=== PATIENT | male | born 1940 | race Caucasian/White ===

== ENCOUNTER 2021-03-15 11:22 | Outpatient (CLI) | payer MEDICARE, SELFPAY ==
--- NOTE | 2021-03-15 11:30 | ECG_ITS ---
Measurements Intervals [place] Rate: 67 P: 29 UT: 184 QRS: -20 QRSD: 106 T: 23 QT: 378 QTc: 401 Interpretive Statements SINUS RHYTHM LEFT VENTRICULAR HYPERTROPHY BORDERLINE R WAVE PROGRESSION, ANTERIOR LEADS BORDERLINE T WAVE ABNORMALITY- INFERIOR LEADS BASELINE ARTIFACT- I, II, AVR, AVL BORDERLINE ECG Electronically Signed On 03-15-2021 15:23:55 HEAT TREATING OPERATOR by Jewel Marie D.O.
== END 2021-03-15 11:23 | disposition home or self-care (01) ==
PROVIDERS: PCP Internal Medicine; Visit Provider Urology
DX: Z01.810 Encounter for preprocedural cardiovascular examination (principal); E78.00 Pure hypercholesterolemia, unspecified; I51.7 Cardiomegaly
CPT/HCPCS: 93005

== ENCOUNTER 2021-03-21 00:25 | Day surgery (SDC) | payer MEDICARE, SELFPAY ==
--- NOTE | 2021-03-11 08:25 | P.HP_ITS ---
H&P: HPI History of Present Illness Date/Time: 03/11/21 08:25 This is a pleasant 81-year-old male who has been a patient in our practice since December 2005. He has long-standing prostatism that responded well to finasteride for years. Recently he has had progression and urinary frequency and urgency that have persisted despite the addition of tamsulosin. Urodynamics revealed high pressure voiding with a slow flow in an absence of unstable contractions. After discussion of options for this obstructive voiding pattern he has elected for a TURP. He is aware the alternative procedures including UroLift and other minimally invasive procedures. He is aware the risk including, but not limited to, adverse cardiopulmonary events, postoperative bleeding, persistent irritable voiding symptoms, urinary continence. Chief Complaint: Urinary frequency/urgency and diminished stream Review of Systems Cardiovascular: Cardiovascular: Denies chest pain, Denies lightheadedness, Denies palpitations and Denies dyspnea Respiratory: Respiratory: Denies dyspnea Gastrointestinal: Gastrointestinal: Denies diarrhea, Denies nausea and Denies vomiting Genitourinary: Genitourinary: Denies hematuria and Denies dysuria Endocrine: Endocrine: Denies palpitations Exam Const: General: no acute distress Resp: Effort & Inspection: normal respiratory effort GI: Inspection: non-distended GI Palp: No abdominal tenderness and No Guarding due to palpation present (GI) Auscultation: normal bowel sounds Assessment and Plan Assessment and plan (1) BPH loc w urin obs/LUTS: Code(s): N40.1 - Benign prostatic hyperplasia with lower urinary tract symptoms Status: Acute Assessment and Plan: * TURP
[2021-03-13 13:17] VITALS: BMI 28.1
--- NOTE | 2021-03-13 13:27 | PC.NURSE ---
Report to the Outpatient Waiting Room, entrance under the green pavilion located off [facility], at time _0600_ on date _03/21/21_. OR Time: __0730___. - You and your visitor will be asked a series of questions to screen for COVID 19 for your protection. - A mask is required within the hospital. - Only one visitor is allowed at this time. Patient visitors will be guided where to wait when not with patient. Preoperative COVID Testing Requirements: No COVID Test needed if: (proof is required; if not received patient will have Rapid Test prior to entry) - Patient has received COVID Vaccine at least 14 days prior to procedure date or - Patient has positive COVID test result within last 90 days of surgery date. COVID Test needed if above criteria is not met If not COVID vaccinated a COVID test must be conducted within 72 hours of surgery and patient is asked to isolate self from time of testing until procedure. You will go to the [facility] for your COVID testing. The [facility] is located at the corner of [address] [facility]. You will only be called if COVID results are positive and your surgeon may reschedule your elective surgery date. Patients may have clear liquids (water, carbonated beverages, clear teas, apple juice) until 3 hours prior to surgery (0430) with a maximum of 20 ounces. - No food from midnight until time of surgery - Infants may have breast milk until 4 hours before surgery, infant formula 6 hours prior to surgery. - Children will be allowed to drink immediately following surgery. If applicable, please bring a bottle or sippy cup to assist with drinking. Juice, water, soda, and popsicles are readily available. For infants on formula, please bring formula the day of surgery. Pacifiers are allowed. Take the following medications with a SIP of water the morning of surgery: ___NONE Medications to discontinue per physician __ASPIRIN, ALL VITAMINS [address] MURILLO, _PRESERVISION AREDS-2 3 DAYS PER ANESTHESIA Date to take last dose__03/13/21, & 03/17/21 Please no make-up, nail cameroonian, hairspray, perfume, deodorant, or body powder the day of surgery. No jewelry (including any body piercings) or valuables the day of surgery, leave them at home. Please take a shower or bath the night before, or the morning of, surgery with an antibacterial soap. Wear comfortable, loose fitting clothing. Children are encouraged to wear pajamas. - Jewelry must be removed prior to entering the operating room. Rings and piercings that are not removed may be cut off. - The hospital will not accept responsibility for valuables. - Please leave all valuables, including medications, at home the day of surgery. If you are going home after surgery, a licensed flatbed driver must drive you home. - NO public transportation without another adult. - We recommend that an adult stay with you for 24 hours following discharge. - We also recommend that you do not drive, make important decision, drink alcoholic beverages, or take any drugs that were not prescribed by your health care provider for at least 24 hours after your discharge time. For Pediatric surgeries, we recommend two adults accompany the child home (only one inside the building at this time). Follow any additional instructions given to you from your surgeon. Telephone instructions given to __PT____and asked if any additional questions and then verbalized understanding. Patient advised to call surgeon office or pre surgery nurse liaison [phone] if any additional questions.
[2021-03-21] VITALS (13 sets, daily range): BP systolic 135–152; BP diastolic 55–74; PULSE 60–74; RESP 10–18; TEMP 35.8–36.4; O2SAT 94–100
[2021-03-21] MEDS: LACTATED RINGERS 1,000 ML 30 ML IV CONT ×2 (06:10→08:24)
[2021-03-21 06:17] LABS: Glucose Point of Care 130 mg/dl (65-105)
--- NOTE | 2021-03-21 06:50 | WPDHPUPDATE1 ---
History and Physical Update Update Date/Time: 03/21/21 06:50 History and Physical has been reviewed, including an updated exam of the patient. There are NO changes in the patient's condition. Risks, benefits, and alternatives have been discussed and questions answered. Patient agrees to proceed with procedure.
--- NOTE | 2021-03-21 06:59 | P.PNAN_ITS ---
Anes - Initial Pre Proc Eval Procedure: Operation Date: 03/21/21 07:30 Proposed Procedures p Trans Urethral Resection Prostate - Glenn Ya MD Date/Time: 03/21/21 06:59 Surgeon: Glenn Ya MD Pre Op Diagnosis: BPH Patient Data Age: 81 Gender: M Height: 1.68 m Weight: 79.09 kg Allergies Allergy/AdvReac Type Severity Reaction Status Date / Time latex AdvReac Blister Verified 03/13/21 13:12 Home Medications Medication Instructions Recorded Confirmed Type aspirin 81 mg PO DAILY 03/13/21 03/13/21 History cholecalciferol (vitamin D3) 25 mcg PO DAILY 03/13/21 03/13/21 History cinnamon bark [Cinnamon] 1,000 mg PO BID 03/13/21 03/13/21 History finasteride 5 mg HS 03/13/21 03/13/21 History multivitamin [Multi-Vitamin] 1 tablet PO DAILY 03/13/21 03/13/21 History nintedanib [Ofev] 100 mg PO BID 03/13/21 03/13/21 History omega 2-mej-fka-fish oil [Fish Oil] 1 cap PO TID 03/13/21 03/13/21 History simvastatin 20 mg HS 03/13/21 03/13/21 History vit C,F-Sz-ahbkq-lutein-zeaxan 1 tablet PO BID 03/13/21 03/13/21 History [PreserVision AREDS-2] Laboratory Tests 03/21/21 06:13 POC Capillary Glucose 130 mg/dl H mg/dl (65-105) Patient hx anesthesia problems: none Family hx anesthesia problems: none Results Review: All pre-operative results and documents have been reviewed as part of the pre-operative evaluation. [facility] Past Medical History Medical History (Updated 03/21/21 @ 07:00 by Gamal Yanez MD) BPH (benign prostatic hyperplasia) Hyperlipidemia Pulmonary fibrosis Surgical History Surgical History (Updated 03/21/21 @ 07:01 by Gamal Yanez MD) History of lung biopsy Hx of tonsillectomy Social History Social History Smoking status: Never smoker Second hand tobacco smoke exposure: No Alcohol intake: never Substance use: never Substance use type: does not use Living arrangements: with friend(s) Additional living arrangements comments: PT LIVES WITH SIGNIFICANT OTHER Spiritual care concerns: No Anes - Eval Final PreProcedure Day of Procedure 03/21/21 06:59 Patient weight: overweight Heart: regular rate and rhythm Lungs: clear to auscultation Airway: Mallampati scale class II Neurological: alert and oriented Last oral intake: >/= 8 hours ASA classification: III Emergent: no Anesthetic plan: proceed Anesthesia type and monitoring: general LMA and standard monitoring Results Review: All pre-operative results and documents have been reviewed as part of the pre-operative evaluation. Informed Consent: The patient's anesthetic plan and its attendant risks and benefits were discussed with the patient/family/POA. Questions were solicited and answers provided to the satisfaction of the patient/family/POA.
[2021-03-21] MEDS: ceFAZolin 2 GM/D5W 50 ML 2 GM/50 ML BAG IVPB (07:23)
--- NOTE | 2021-03-21 08:25 | W.PM.PROC2 ---
Procedure Note - Detailed Date of Procedure 03/21/21 Pre-op Diagnosis BPH Post-op Diagnosis same Procedure Performed TURP Surgeon Glenn Ya MD Anesthesia general Description of Procedure The patient was brought to the operative suite where he is prepped and draped in routine sterile fashion while in the dorsal lithotomy position after the uneventful induction of a [general LMA/spinal] anesthetic. A 27 Divehi resectoscope sheath was placed into his bladder. He had no urethral strictures. The patient had trilobar hyperplasia with a small median lobe. The bladder itself was endoscopically normal, showing no mucosal hyperemia, intravesical neoplasm or foreign bodies. There was a single, orthotopic ureteral orifice bilaterally. These orifices were identified and preserved throughout the remainder of the procedure. Attention was first turned to resection of the median lobe. This resection was undertaken from the bladder neck to the verumontanum and carried out until the transverse fibers of the bladder neck were identified. The left lateral lobe was then resected starting at the 6 o'clock position, working counter clockwise to the 12 o'clock position. Again, resection was carried out from the bladder neck to the verumontanum until the capsular fibers of the prostate were identified. The right lateral lobe was resected in a similar fashion starting at the 6 o'clock position working clockwise to the 12 o'clock position and carried out until the capsular fibers of the prostate were identified. Apical tissue was then circumferentially resected. All chips were evacuated from the bladder using an [employer] evacuator. Hemostasis was obtained with electric cautery. The ureteral orifices were again inspected and found to be without injury. Estimated blood loss throughout this procedure was []cc. The patient was taken to recovery room having tolerated this well. Estimated Blood Loss 50 Drains Yes Packing No Pathology yes Complications No immediate complications Condition stable Disposition PACU
[2021-03-21] MEDS: fentaNYL CITRATE INJ (*CRX) 100 MCG/2 ML VIAL 25 MCG IV PUSH ×3 (08:48→09:00)
--- NOTE | 2021-03-21 09:36 | SUR.PHASEI ---
[id number] sbar faxed floor notified
--- NOTE | 2021-03-21 10:15 | ADMGEN ---
This patient, Jaya Galvan, was admitted to 2 Medical Room 240-. Patient/family oriented to hospital policies and general routines including ID bracelet, bed and alarms, visiting hours, pain management, procedures, bathroom and other care routines, personal items, smoking policy, room service/diet, and visiting hours. Information on how to activate the Rapid Response Team has been discussed. Patient/Family are encouraged to report perceived risks to care and to ask questions if they do not understand what they are told or what they should do.
[2021-03-21] MEDS: DEXTROSE 5%/LACTATED RINGERS 1,000 ML 125 ML IV CONT (10:30)
[2021-03-21] MEDS: MULTIVITAMINS THERAPEUTIC TAB (*BKC) 1 TABLET PO (11:05)
[2021-03-21] MEDS: DOCUSATE SODIUM 100 MG CAPSULE PO (11:05)
[2021-03-21] MEDS: SIMVASTATIN 20 MG TABLET BY MOUTH (21:26)
[2021-03-21] MEDS: HYDROcodone/acetaminophen (*CRX) 5-325 MG TABLET 1 TAB PO (21:26)
[2021-03-22 03:00] VITALS: BP 135/64; PULSE 60; RESP 18; TEMP 36.6; O2SAT 95
[2021-03-22 05:12] LABS: Hematocrit 35.1 % (42.0-52.0); Hemoglobin 11.9 g/dL (14.0-18.0)
[2021-03-22 05:35] LABS: Anion Gap 6 mmol/L (8-16); Blood Urea Nitrogen 10 mg/dL (9-20); Calcium 9.3 mg/dL (8.4-10.2); Carbon Dioxide 29 mmol/L (22-30); Chloride 104 mmol/L (98-107); Estimated CRCL calculation 63 ml/min; Estimated Glomerular Filt Rate > 60; Glucose 112 mg/dL (65-110); Sodium 139 mmol/L (137-145)
[2021-03-22 08:00] VITALS: BP 128/68; PULSE 68; RESP 16; TEMP 36.1; O2SAT 98
[2021-03-22] MEDS: CEPHALEXIN 500 MG CAPSULE PO ×3 (08:35→16:37)
[2021-03-22] MEDS: MULTIVITAMINS THERAPEUTIC TAB (*BKC) 1 TABLET PO (08:35)
--- NOTE | 2021-03-22 09:01 | WPDANESPN ---
Anes - Prog Note Post-Op Date/Time: 03/22/21 09:01 Cardiovascular status: normal Respiratory status: normal Airway patency: baseline Mental status: baseline Post-Op hydration status: normal Vital Signs: Last Vital Signs Temp 36.6 C 03/22/21 03:00 Pulse 60 03/22/21 03:00 Resp 18 03/22/21 03:00 BP 135/64 03/22/21 03:00 Pulse Ox 95 03/22/21 03:00 Pain Score (VAS): 0 I/O: Intake & Output 03/21/21 03/22/21 03/22/21 23:59 07:59 15:59 Intake Total 3400 900 360 Output Total 3750 650 Balance -350 250 360 Laboratory Tests 03/22/21 04:36 03/22/21 04:36 03/22/21 03/22/21 04:36 04:36 Hgb 11.9 L Hct 35.1 L Sodium 139 Potassium 4.0 Chloride 104 Carbon Dioxide 29 Anion Gap 6 L BUN 10 Creatinine 0.70 Estim Creat Clear Calc 63 Estimated GFR > 60 Glucose 112 H Calcium 9.3 Post-procedural complaints: none Patient Feedback: Patient satisfied with anesthetic care.
--- NOTE | 2021-03-22 09:31 | WPDUROPN2 ---
Progress Note: A&P Assessment and Plan (1) BPH loc w urin obs/LUTS: Code(s): N40.1 - Benign prostatic hyperplasia with lower urinary tract symptoms Status: Acute Assessment and Plan: Doing well POD#1 TURP - voiding trial this morning. Subjective Subjective Date/Time Seen: 03/22/21 09:31 POD #1: TURP - comfortable, no compliants Review of Systems Cardiovascular: Cardiovascular: Denies chest pain, Denies lightheadedness, Denies palpitations and Denies dyspnea Respiratory: Respiratory: Denies dyspnea Gastrointestinal: Gastrointestinal: Denies diarrhea, Denies nausea and Denies vomiting Genitourinary: Genitourinary: Denies hematuria and Denies dysuria Endocrine: Endocrine: Denies palpitations Exam Const: General: no acute distress Resp: Effort & Inspection: normal respiratory effort GI: Inspection: non-distended GI Palp: No abdominal tenderness and No Guarding due to palpation present (GI) Auscultation: normal bowel sounds Objective Data Vital Signs Vital Signs: Vital Signs - 24 hr 03/21/21 09:35 03/21/21 10:05 03/21/21 10:20 Temperature 96.9 F L Pulse Rate 60 61 60 Respiratory Rate 12 16 16 Blood Pressure 140/70 148/55 H 152/66 H Pulse Oximetry 96 94 96 03/21/21 10:50 03/21/21 11:50 03/21/21 15:50 Temperature Pulse Rate 64 69 72 Respiratory Rate 16 16 16 Blood Pressure 147/58 H 143/68 H 147/63 H Pulse Oximetry 96 97 96 03/21/21 19:10 03/21/21 23:35 03/22/21 03:00 Temperature 96.4 F L 97.6 F 97.8 F Pulse Rate 71 64 60 Respiratory Rate 17 17 18 Blood Pressure 142/64 H 140/60 135/64 Pulse Oximetry 97 94 95 Intake/Output Intake/Output: Intake & Output 03/19/21 03/20/21 03/21/21 03/22/21 23:59 23:59 23:59 23:59 Intake Total 5410 1260 Output Total 9300 650 Balance -3890 610 Meds/Results Medications: Active Medications Generic Name Dose Route Start Last Admin Trade Name Freq PRN Reason Stop Dose Admin Hydrocodone Bitart/Acetaminophen 1 tab 03/21/21 08:31 03/21/21 21:26 Hydrocodone/Acetaminophen (*Crx) 5-325 Mg Tablet PO 1 tab Q4H PRN Administration Pain Rated 1-6 Cephalexin HCl 500 mg 03/22/21 09:00 03/22/21 08:35 Cephalexin 500 Mg Capsule PO 500 mg QID ESTHER Administration Docusate Sodium 100 mg 03/21/21 09:00 03/22/21 08:35 Docusate Sodium 100 Mg Capsule PO Not Given BID ESTHER Hyoscyamine 0.125 mg 03/21/21 08:31 Hyoscyamine Sulfate 0.125 Mg Tablet SUBLINGUAL Q6H PRN Bladder Spasm Miscellaneous Information 1 each 03/21/21 00:01 Nintedanib [Ofev] 100 Mg Capsule Is Non Formulary. Can Patient Bring From Home? XX 04/20/21 00:00 [facility] Morphine Sulfate 2 mg 03/21/21 08:31 Morphine Sulfate (*Crx) 2 Mg/Ml Inj IV PUSH Q2H PRN Pain Rated 7-10 Morphine Sulfate 2 mg 03/21/21 09:02 Morphine Sulfate (*Crx) 2 Mg/Ml Inj IV PUSH Q5M PRN Pain Multivitamins Therapeutic 1 tablet 03/21/21 09:00 03/22/21 08:35 Multivitamins Therapeutic Tab (*Bkc) PO 1 tablet DAILY ESTHER Administration Naloxone HCl 0.1 mg 03/21/21 08:31 Naloxone Hcl 0.4 Mg/Ml Vial IV PUSH Q2M PRN Opiate Reversal Non-Formulary Medication 100 mg 03/21/21 09:00 Nintedanib [Ofev] PO 04/20/21 08:59 BID ESTHER Ondansetron HCl 4 mg 03/21/21 08:31 Ondansetron Inj 4 Mg/2 Ml Vial IV PUSH Q12H PRN Nausea And Vomiting Simvastatin 20 mg 03/21/21 21:00 03/21/21 21:26 Simvastatin 20 Mg Tablet BY MOUTH 20 mg HS ESTHER Administration Labs Labs: Laboratory Results - last 24 hr 03/22/21 03/22/21 04:36 04:36 Hgb 11.9 L Hct 35.1 L Sodium 139 Potassium 4.0 Chloride 104 Carbon Dioxide 29 Anion Gap 6 L BUN 10 Creatinine 0.70 Estim Creat Clear Calc 63 Estimated GFR > 60 Glucose 112 H Calcium 9.3
[2021-03-22 12:00] VITALS: BP 130/61; PULSE 72; RESP 16; TEMP 36.1; O2SAT 96
--- NOTE | 2021-03-22 16:14 | P.DS_ITS ---
DS: Admitting Diagnosis Discharge Date 03/22/2021 Admitting Diagnosis BPH DS: Discharge Diagnosis Discharge Diagnosis (1) BPH loc w urin obs/LUTS: Code(s): N40.1 - Benign prostatic hyperplasia with lower urinary tract symptoms Status: Acute DS: Summary Hospital Course Hospital Course: This patient with longstanding prostatism refractory for medical management was admitted on the morning of his planned TURP. The procedure was undertaken on that same day in an uneventful fashion. His post- operative course was, likewise, uneventful. On the evening of the procedure he was tolerating a diet. On POD#1 his urine was clear on CBI. The urine remained clear and, therefore, the catheter was removed late morning. The patient was observed for several hours, until he demonstrated he could void effectively without significant hematuria. He was discharged with careful instruction on limiting physical activity x2 weeks and plans to f/ in 2-3 weeks. At discharge he was comfortable and tolerating a diet. Time Spent with Patient Time attestation: Total time spent providing and/or coordinating discharge services: 15min. Exam Const: General: no acute distress Resp: Effort & Inspection: normal respiratory effort GI: Inspection: non-distended GI Palp: No abdominal tenderness and No Guard ing due to palpation present (GI) Auscultation: normal bowel sounds DS: Data Data Completed and Pending Pending studies at discharge: Pending at discharge 03/21/21 08:08 Surgical [PTH] Routine Labs on day of discharge: Labs from last 24 hours 03/22/21 03/22/21 04:36 04:36 Hgb 11.9 L Hct 35.1 L Sodium 139 Potassium 4.0 Chloride 104 Carbon Dioxide 29 Anion Gap 6 L BUN 10 Creatinine 0.70 Estim Creat Clear Calc 63 Estimated GFR > 60 Glucose 112 H Calcium 9.3 Discharge Plan Discharge Patient Disposition: Home, Self-Care Discharge Instructions: 1) Activity: No lifting/straining >15lbs. x2 weeks. 2) Diet: Resume normal pre-admission diet. 3) Follow-up: 2-3 weeks / call office for appointment ([phone]). Stand Alone Forms: General Discharge Instructions Discharge Orders: Discharge Order (Routine); Ordered 03/22/21 Ordered By: Glenn Ya Discharge Medications: New hydrocodone-acetaminophen 5-325 mg tablet 1 - 2 tablet PO Q6H PRN (Reason: pain) Qty: 20 RF: 0 sulfamethoxazole-trimethoprim 800-160 mg tablet 1 tablet PO Q12H Qty: 6 RF: 0 Continued multivitamin Tablet 1 tablet PO DAILY RF: 0 simvastatin 20 mg tablet 20 mg HS RF: 0 cholecalciferol (vitamin D3) 25 mcg (1,000 unit) Tablet 25 mcg PO DAILY RF: 0 PreserVision AREDS-2 250-90-40-1 mg Capsule 1 tablet PO BID RF: 0 Ofev 100 mg capsule 100 mg PO BID RF: 0 Held cinnamon bark [Cinnamon] 500 mg Capsule 1,000 mg PO BID RF: 0 Hold Instructions: Resume on 03/26/21. omega 7-gby-ynz-fish oil [Fish Oil] 1,200 (144-216) mg Capsule 1 cap PO TID RF: 0 Hold Instructions: Resume on 03/26/21. aspirin 81 mg Capsule 81 mg PO DAILY RF: 0 Hold Instructions: Resume on 03/26/21. Discontinued finasteride 5 mg tablet 5 mg HS RF: 0
== END 2021-03-22 16:58 | disposition home or self-care (01) ==
LOC: ANHSURGERY 05:52 → ANH2MED 16:01
PROVIDERS: PCP Internal Medicine; Visit Provider Urology
PROC: 0VT08ZZ Resection of Prostate, Via Natural or Artificial Opening Endoscopic (ICD-10-PCS; CPT 52601; principal; 2021-03-21 07:30)
DX: N40.1 Benign prostatic hyperplasia with lower urinary tract symptoms (principal); R35.0 Frequency of micturition; R39.15 Urgency of urination; E78.5 Hyperlipidemia, unspecified; J84.10 Pulmonary fibrosis, unspecified; Z79.82 Long term (current) use of aspirin
CPT/HCPCS: 52601; 36415; 80048; 82948; 85014; 85018; 88305; 93005; A9270; J0690; J1100; J2405; J2704; J3010; J7120; J7121

== ENCOUNTER 2023-09-23 12:40 | Outpatient (CLI) | payer MEDICARE, SELFPAY ==
--- NOTE | ~2023-09-23 | CT_ITS ---
EXAMINATION: CT chest high resolution wo co DATE: 09/23/2023 13:50 INDICATION: J84.9 - Interstitial pulmonary disease, unspecified TECHNIQUE: Computed tomography (CT) of the chest was performed without intravenous contrast. Addition al 3D reconstructions utilizing coronal maximum intensity projection (MIP) were performed. Automated exposure control and iterative reconstruction technique were employed. The dose-length product was 20 8.65 mGy-cm. COMPARISON: 11/16/2019 FINDINGS: No significant interval change in peripheral and lower lung predominant irregular septal line thicken ing with mild honeycombing consistent with usual interstitial pneumonia (UIP) pattern chronic interst itial lung disease. There is mild associated bronchiectasis in the bilateral lower lobes. There are s uture lines at the periphery of the anterior aspect of the right middle lobe and the inferior postero lateral aspect of the right upper and right lower lobes which suggests prior excisional lung biopsies . Correlate with surgical history. There are a couple small calcified nodules in the superior segment of the left lower lobe consistent with old granulomatous disease. No pneumonia, pulmonary edema or p leural effusion. Heart size is normal. Small amount of atherosclerotic coronary artery calcification. Aortic valve calcification. No pericardial effusion. Thoracic aorta is normal in caliber. No patholo gically enlarged thoracic lymphadenopathy. Hepatic calcification consistent with old granulomatous di sease. Mild to moderate thoracic spondylosis. IMPRESSION: 1. No significant interval change in likely usual interstitial pneumonia (UIP) pattern chronic inters titial lung disease. Reviewed, dictated and finalized at location A. IMPRESSION: 1. No significant interval change in likely usual interstitial pneumonia (UIP) pattern chronic interstitial lung disease.
--- NOTE | 2023-09-24 08:58 | WPDSIXMINUTE ---
Six Minute Walk Procedure Procedure Performed Pulmonary Stress Test (6 min walk) Six Minute Walk Six Minute Walk: This is a 6 minute walk test. The test was performed and interpreted in accordance with the 2014 ERS/ATS task force guidelines. Findings: The patient's resting room air oxygen saturation measured by pulse oximetry was 97% and heart rate was 66 bpm. Patient ambulated for 488 meters and oxygen saturation remained 93 to 96%. Heart rate at the end of the study was 91 bpm. The patient did not qualify for supplemental oxygen at rest or with ambulation. There are no prior studies for comparison.
--- NOTE | 2023-09-24 08:59 | WPDPFTINT ---
PFT Procedure Performed PFT Procedure Performed Spirometry with Pre/Post Bronchodilator Plethysmography (Lung Vol) Diffusing Cap (DLCO) Flow Vol Loop PFT Interpretation This is a pulmonary function test with pre and post-bronchodilator spirometry, plethysmography, diffusing capacity, and rest room air arterial blood gas. The test was performed and results interpreted in accordance with the 2019 and 2005 ATS/ERS Task Force guidelines respectively using the Global Lung Function Initiative-2012 reference equations. Patient demonstrated good effort and cooperation. Reproducibility criteria were met. The quality of the pre bronchodilator spirometry maneuver was Grade A and post bronchodilator spirometry maneuver was Grade B. Findings: Spirometry: the contour the inspiratory and expiratory flow tracing are normal. The pre bronchodilator FVC is 1.92 L, 58% predicted. The pre bronchodilator FEV1 is 1.61 L, 66% predicted. The pre bronchodilator FEV1: FVC ratio is 84%. The post bronchodilator FVC is 2.09 L, representing a 9% increase. The post bronchodilator FEV1 is 1.74 L, representing an 8% increase. The post bronchodilator FEV1: FVC ratio is 83%. Plethysmography: The total lung capacity is 3.03 L, 48% predicted. The functional residual capacity is 1.43 L, 42% predicted. The residual volume is 1.10 L, 43% predicted. Diffusing capacity: The diffusing capacity unadjusted for hemoglobin and carboxyhemoglobin is 11.3, 53% predicted. The diffusing capacity adjusted for alveolar volume is 4.25, 114% predicted. Rest room air arterial blood gas: pH 7.42, PaCO2 38, PaO2 80. Compared to previous pulmonary function testing report from [facility] on 02/25/2023: the pre bronchodilator FVC is unchanged from 1.81 L to 1.92 L. The pre bronchodilator FEV1 is unchanged from 1.45 L to 1.61 L. The total lung capacity is unchanged from 2.94 L to 3.03 L. The residual volume is unchanged from 1.25 L to 1.10 L. The diffusing capacity unadjusted for hemoglobin and carboxyhemoglobin is unchanged from 10.2 to 11.3. Compared to previous pulmonary function testing report from [facility] on 11/16/2019 which was pre initiation of Ofev the pre bronchodilator FVC is unchanged from 1.75 L to 1.92 L. The pre bronchodilator FEV1 is unchanged from 1.49 L to 1.61 L. The total lung capacity is unchanged from 3.31 L to 3.03 L. The residual volume is decreased from 1.43 L to 1.10 L. The diffusing capacity unadjusted for hemoglobin and carboxyhemoglobin is unchanged from 12.0 to 11.3. 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 The spirometry is normal without evidence of an obstructive abnormality. There is no significant improvement after inhaling a single dose of albuterol. The diffusing capacity unadjusted for hemoglobin and carboxyhemoglobin is moderately decreased and normalizes when adjusted for alveolar volume. The rest room air arterial blood gas is normal. In comparison to prior pulmonary function testing on 02/25/2023 and 11/16/2019 (pre OFEV) there has been no significant change in the pre bronchodilator FVC, pre bronchodilator FEV1, total lung capacity, residual volume or diffusing capacity unadjusted for hemoglobin and carboxyhemoglobin.
== END 2023-09-24 07:26 | disposition home or self-care (01) ==
PROVIDERS: PCP Internal Medicine; Visit Provider Internal Medicine Pulmonary Disease
DX: J84.9 Interstitial pulmonary disease, unspecified (principal)
CPT/HCPCS: 71250; 94060; 94618; 94726; 94729

== ENCOUNTER 2024-03-28 12:00 | Outpatient (CLI) | payer MEDICARE, SELFPAY ==
[2024-03-28 12:43] LABS: Alanine Aminotransferase 15 U/L (6-50); Albumin Level 3.9 g/dL (3.5-5.1); Alkaline Phosphatase 86 U/L (38-126); Anion Gap 3 mmol/L (4-12); Aspartate Amino Transferase 33 U/L (17-59); Bilirubin,Total 0.6 mg/dL (0.2-1.3); Blood Urea Nitrogen 16 mg/dL (9-20); Calcium 9.2 mg/dL (8.4-10.2); Carbon Dioxide 32 mmol/L (22-30); Chloride 104 mmol/L (98-107); Estimated Glomerular Filt Rate > 60; Glucose 110 mg/dL (65-110); Potassium 4.1 mmol/L (3.4-5.0); Sodium 139 mmol/L (137-145)
== END 2024-03-28 12:01 | disposition home or self-care (01) ==
LOC: ANHLAB 12:02
PROVIDERS: PCP Internal Medicine; Visit Provider Internal Medicine Pulmonary Disease
DX: J84.9 Interstitial pulmonary disease, unspecified (principal)
CPT/HCPCS: 36415; 80053

== ENCOUNTER 2024-09-13 12:39 | Outpatient (CLI) | payer MEDICARE, SELFPAY ==
--- OUTSIDE RECORDS SUMMARY | 2024-09-13 12:41 | XMS_ITS | CONTINUITY OF CARE DOCUMENT ---
Author Name mallory tejada Address Unknown Organization [facility] Address [address] [place] [address] Phone [phone] Care Team Providers Care Beekeeper Name Role Phone mallory tejada Unavailable Unavailable
--- OUTSIDE RECORDS SUMMARY | 2024-09-13 12:41 | XMS_ITS | Encounter Summary ---
Author Organization [facility] Address [address] [place] [address] Care Team Providers Care Slate Splitter Name Role Phone Chet Sorto MD Primary Care Provider Glenn Ya MD Unavailable [phone] Jose Ghotra MD Unavailable [phone] Encounter Details Date Type Department Care Team (Late st Contact Info) Description 07/28/2024 Results Follow-Up [facility] Primary Care at [address] [place] [address] Chet Sorto MD [address] [facility] [address] [place] [address] Social History Tobacco Use Types Packs/Day Years Used Date Smoking Tobacco: Never Smokeless Tobacco: Never Alcohol Use Standard Drinks/Week Comments No 0 (1 standard drink = 0.6 oz pur e alcohol) AUDIT-C Answer Date Recorded Q1: How often do you have a drink containing alcohol? Never 02/04/2024 Q2: How many drinks containi ng alcohol do you have on a typical day when you are drinking? Patient does not drink Q3: How often do you have si x or more drinks on one occasion? 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 Results will be addressed and discussed in office visit with patient. documented in this encounter Plan of Treatment Not on file documented as of this encounter Visit Diagnoses Not on filedocumented in this encounter Care Teams Slate Splitter Relationship Specialty Start Date End Date Chet Sorto MD PCP - General Family Medicine 02/04/24 Glenn Ya MD [address] [place] [address] Consulting Physician Urology 02/04/24 Jose Ghotra MD [address] [place] [address] Referring Physician Critical Care Med 02/04/24 documented as of this encounter
--- OUTSIDE RECORDS SUMMARY | 2024-09-13 12:41 | XMS_ITS | Continuity of Care Document ---
Author Organization [employer] [facility] Address [address] [facility] [address] [place] [address] Phone Care Team Providers Care Screen Making Supervisor Name Role Phone Aye OD, Lacy Unavailable Unavailable Allergies, Adverse Reactions, Alerts Substance Reaction Status Criticality latex Active No Information Medications Medication Instructions Dosage Effective Dates (start - stop) Status Comments Refresh Liquigel 1 % eye liquid gel drops One drop both eyes before bed daily - Active Systane Complete 0.6 % eye drops instill 1 drop by ophthalmic route as needed - Active Miebo 100 % eye drops instill 1 drop by ophthalmic route 4 times every day into affected eye(s) 1.00 drop - Active CENTRUM SILVER (unknown strength) take one tablet daily Not Available - Active Fish Oil 1,200 mg (144 mg-216 mg) capsule take 1 capsule by oral route every 3 days 1 capsule - Active Vitamin D3 10 mcg (400 unit) tablet - Active Imodium A-D 2 mg tablet take 2 tablet by oral route after 1st loose stool and 1 tablet (2 mg) after each next bowel movement; do not exceed 16 mg in 24hrs 4 MG - Active Ofev 100 mg capsule take 1 capsule by oral route 2 times every day 100 MG - Active Tylenol 325 mg tablet take 2 tablet by oral route every 6 hours as needed 650 MG - Active aspirin 81 mg tablet,delayed release take one tablet daily - Active Cinnamon 500 mg capsule take one tablet daily - Active finasteride 5 mg tablet take one tablet daily - Active PreserVision AREDS 14,320 unit-226 mg-200 unit capsule take one tablet daily - Active Refresh Tears 0.5 % eye drops take one tablet daily - Active simvastatin 20 mg tablet take one tablet daily - Active Procedures Procedure Date Office/outpatient Visit, Est Xcellent A 3000 60 C No Charge GDX Retina Corneal Pachymetry SCODI, Posterior Segment Visual Field Examination(s) Office/outpatient Visit, Est No Charge Optomap Fundus Photos 024 Eye Exam & Treatment No Charge Optomap Fundus Photos 023 Eye Exam & Treatment SCODI, Retina No Charge Optomap Fundus Photos 022 Eye Exam & Treatment No Charge Optomap Fundus Photos 021 Office/outpatient Visit, Est Eye Exam & Treatment Eye Exam & Treatment Eye Exam & Treatment Eye Exam & Treatment Eye Exam & Treatment Post-op Follow-up Visit Office/outpatient Visit, Est After Cataract Laser Surgery Eye Exam & Treatment Eye Exam & Treatment Dilated Retinal Exam W Interpretation Ap No Evidence Of Retinopathy In Prior Year Eye Exam & Treatment Dilated Retinal Exam W Interpretation Ma No Evidence Of Retinopathy In Prior Year Post-op Follow-up Visit Post-op Follow-up Visit Post-op Follow-up Visit After Cataract Laser Surgery Post-op Follow-up Visit Post-op Follow-up Visit Post-op Follow-up Visit Remove Cataract, Insert Lens,Comanaged S Presbyopia Correcting IOL Echo Exam Of Eye-Professional Post-op Follow-up Visit Post-op Follow-up Visit Post-op Follow-up Visit Remove Cataract, Post Op Care 1 Remove Cataract, Insert Lens Presbyopia Correcting IOL Echo Exam Of Eye-Professional 1 IOLMaster-Technical Office/outpatient Visit, Est Echo Exam Of Eye-Technical Eye Exam & Treatment Dilated Macular Exam Performed 11 Counseling For Antioxidant Supplements F Eye Exam & Treatment Eye Exam & Treatment No Script Eye Exam & Treatment Office/outpatient Visit, Est Advance Directives Directive Yes / No Effective Date File Name No Information Encounters Encounter Description Practice Location Reason(s) For Visit Diagnoses Date Provider Providers Copied on Encounter [place] [facility] [place] [address], [place], [place], [address], tel:[phone] SEC Mike NOEL Professional Dry eye evaluation (chief complaint) Dry eye syndrome of bilateral lacrimal glands 4 Aye OD Lacy. [address] [address], [address], [place], [place], [address], [place]. tel:[phone] Referring Provider: Eric Herman M, [address] [facility] [address], [place], [address] . tel:[phone] [place] [facility] [place] [address] [address], [place], [place], [address], [place] tel:[phone] SEC Mike NOEL Professional Glaucoma evaluation (chief complaint) Bilateral ocular hypertensionD ry eye syndrome of bilateral lacrimal glands 2-202 4 Aye OD Lacy. [address] [address], [address], [place], [place], [address], [place]. tel:[phone] Referring Provider: [place], [address], [place], [address] . tel:[phone] [facility], [address] [place] [address] [address], [place], [place], [address], tel:[phone] SEC Mike [place] Professional diabetic eye exam (chief complaint) RPE mottling of maculaType 2 diabetes mellitus without complication, without long-term current use of insulinMacula r scar, rightDry eye syndrome of bilateral lacrimal glandsBilater al ocular hypertension Jul-1 - 4 Aye OD Lacy. [address] [place] [address] [address], [address], [place], [place], [address], [place]. tel:[phone] Referring Provider: Lacy Lan, [address] [place] [address] [address], [place], [address] . tel:[phone] [facility], [address] [place] [address] [address], [place], [place], [address], [place] tel:[phone] SEC Doniphan [place] Professional Diabetic eye exam (chief complaint) Type 2 diabetes mellitus without complications Macular scar, rightDry eye syndrome of bilateral lacrimal glands Jul-1 3 Virgil Reyes. [address] [employer], [facility] [address], [place], [place], [address], [place]. tel:[phone] Referring Provider: Eric Dumas, [address] [employer] [address], [place], [address] . tel:[phone] [facility], [address] [place] [address] [address], [place], [place], [address], [place] tel:[phone] SEC Doniphan [place] Professional Complete Exam (chief complaint) Type 2 diabetes mellitus without complications Presence of intraocular lensPVD (posterior vitreous detachment), right eyeMacular scar, rightDry eye syndrome, left Mar-0 2 Virgil Reyes. [address] [employer], [address], [place], [place], [address], [place]. tel:[phone] Referring Provider: Eric Dumas [address] [facility] [address], [place], [address] . tel:[phone] Office/outpa tient Visit, [place] [facility], [address], [place], [place], [address], [place] tel:[phone] SEC Mike SADIE Professional Diabetic eye exam (chief complaint) Type 2 diabetes mellitus without complication, without long-term current use of insulinPresen ce of intraocular lensRPE mottling of macula 1 Grecia Avalos. [address] [employer], [address], [place], [place], [address], [place]. tel:[phone] Referring Provider: Robbie Brantley, [facility] [employer] [address], [place], [address] . tel:[phone] [facility], [address], [place], [place], [address], [place] tel:[phone] SEC Doniphan SADIE Professional Complete Exam (chief complaint) Presence of intraocular lensDry eyesPeripapil rom atrophy of both eyesRPE mottling of maculaType 2 diabetes mellitus without complications Vitreous degeneration, bilateral 0 Brooks OD Flynn. [address] [place] [address], [address] [place] [address], [place], [address], [place]. tel:[phone] Referring Provider: Flynn Guy OD R, [address] [place] [address], [place], [address]. tel:[phone] [facility], [address] [employer] [address], [place], [place], [address], [place] tel:[phone] SEC Mike SADIE Professional No Information 0 Brooks OD Flynn. [address] [place] [address], [address] [place] [address], [place], [address], [place]. tel:[phone] [facility], [facility] [employer] [address], [place], [place], [address], [place] tel:[phone] SEC Mike NOEL Professiona l Complete Exam (chief complaint) Presence of intraocular lensType 2 diabetes mellitus without complication, without long-term current use of insulinDystro phies primarily involving the retinal pigment epitheliumDry eye Mar- 8 Brooks Pruett. [address] [facility], 6th Floor, [place], [address], [place]. [phone] Referring Provider: Cora Cheney, [address] [place], [address]. tel:[phone] [facility], [address], [place], [place], [address], [place] tel:[phone] SEC Mike NOEL Professional Complete Exam (chief complaint) Dry eye syndrome of bilateral lacrimal glandsPresenc e of intraocular lensType 2 diabetes mellitus without complications RPE mottling of macula Oct-2 7 Shravan Shepherd. [address] [place], [address], [place]. [phone] Referring Provider: Cora Cheney, [address] [place], [address]. tel:[phone] [facility], [address], [place], [place], [address], [place] [phone] SEC Mike NOEL Professional diabetic eye exam (chief complaint) Type 2 diabetes mellitus without complications Presence of intraocular lensRPE mottling of macula Oct-1 6 Zev Gallo. [address] [place], [place], [address], [place]. [phone] Referring Provider: Sabino Brantley, [address] [facility] [address], [place], [address] . tel:[phone] [facility], [address], [place], [place], [address], [place] [phone] SEC Mike NOEL Professional Tearing and burning (chief complaint) No Information 5 Wanmark Gallo. [address], [place], [place], [address], [place]. tel:[phone] Referring Provider: Sabino Brantley, [address], [place], [address] . tel:[phone] [facility], [address] [place] [address] [address], [place], [place], [address], [place] tel:[phone] SEC Mike NOEL Professional No Information 1-201 4 Wankrahul Gallo. [address], [place], [address], [place]. tel:[phone] Referring Provider: Sabino Brantley, [address] [facility] [address], [place], [address] . tel:[phone] [place]pa [place]ient [place], [facility] [place] [address], [place], [place], [address], [place] tel:[phone] SEC Doniphan SADIE Professional No Information -201 4 Wanmark Sabino. [address], [place], [address], [place]. tel:[phone] Referring Provider: Sabino Brantley, [address], [place], [address] . tel:[phone] [facility], [address], [place], [place], [address], [place] tel:[phone] SEC Doniphan SADIE Professional No Information 0 2-201 4 Wankrahul Sabino. [address], [place], [address], [place]. tel:[phone] Referring Provider: Sabino Brantley, [address], [place], [address] . tel:[phone] [facility], [address], [place], [place], [address], [place] tel:[phone] SEC Doniphan SADIE Professional No Information Aug-0 - 3 Wanmark Gallo. [address], [address], [place], [place], [address], [place]. tel:[phone] Referring Provider: Sabino Brantley, [address], [place], [address] . tel:[phone] [facility], [address], [place], [place], [address], [place] tel:[phone] SEC Mike NOEL Professional No Information 2 Wanmark Gallo. [address] [facility], [address], [place], [place], [address], [place]. tel:[phone] Referring Provider: Sabino Brantley, [address], [place], [address] . tel:[phone] [facility], [address], [place], [place], [address], [place] tel:[phone] SEC Mike NOEL Professional No Information 1 No Information Referring Provider: Sabino Brantley, [address], [place], [address] . tel:[phone] [facility], [address], [place], [place], [address], [place] tel:[phone] SEC Mike NOEL Professional No Information 1 No Information Referring Provider: Sabino Brantley, [address], [place], [address] . tel:[phone] [facility], [address], [place], [place], [address], [place] tel:[phone] SEC Mike SADIE Professional No Information Oct- 1 No Information Referring Provider: Sabino Brantley, [address] [facility] [address], [place], [address] . tel:[phone] [facility], [address], [place], [place], [address], [place] tel:[phone] SEC Mike SADIE Professional No Information Jan-1 1 No Information Referring Provider: Sabino Brantley, [address] [facility] [address], [place], [address] . tel:[phone] [facility], [address], [place], [place], [address], [place] tel:[phone] SEC Doniphan SADIE Professional No Information Sep-0 1 No Information Referring Provider: Sabinoreyna Brantley, [address] [facility] [address], [place], [address] . tel:[phone] [facility], [address], [place], [place], [address], [place] tel:[phone] [facility] No Information Sep-0 1 Grecia Avalos. [address], [address], [place], [place], [address], [place]. tel:[phone] Referring Provider: Sabino Brantley, [address] [facility] [address], [place], [address] . tel:[phone] [facility], [address], [place], [place], [address], [place] tel:[phone] SEC Ambrosio Phillip No Information Sep-0 1 Grecia Avalos. [address], [address], [place], [place], [address], . tel:[phone] Referring Provider: Sabino Brantley, [address] [facility] [address], [place], [address] . tel:[phone] [facility], [address], [place], [place], [address], tel:[phone] SEC Mike Zizerones Professional No Information Rafa- 1 Grecia Avalos. [address], [address], [place], [place], [address], [place]. tel:[phone] Referring Provider: Sabino Brantley, [address] [facility] [address], [place], [address] . tel:[phone] [facility], [address], [place], [place], [address], tel:[phone] SEC Mike SD Professional No Information September-0 1 Zev Gallo. [address] [facility], [place], [place], [address], . tel:[phone] Referring Provider: Sabino Zev Brantley, [address] [facility] [address], [place], [address] . tel:[phone] [facility], [address], [place], [place], [address], [place] tel:[phone] SEC [email or web address] Professional No Information Apr- 1 Zev Gallo. [address] [facility], [place], [address], . tel:[phone] Referring Provider: Sabino Brantley, [address] [facility] [address], [place], [address] . tel:[phone] [facility], [address], [place], [place], [address], [place] tel:[phone] SEC Mike [place] Professional No Information Mar-3 0-201 1 Randirahul Gallo. [address] [facility], [address], [place], [place], [address], [place]. tel:[phone] Referring Provider: Sabinoreyna Espinozasandyrahul Brantley, [address] [facility] [address], [place], [address] . tel:[phone] [employer] [facility], [address], [place], [place], [address], [place] tel:[phone] [facility] No Information Mar-2 9 1 Grecia Robbie. [address], [address], [place], [place], [address], [place]. tel:[phone] Referring Provider: Sabino Brantley, [address] [facility] [address], [place], [address] . tel:[phone] [employer] [facility], [address], [place], [place], [address], [place] tel:[phone] SEC Ambrosio Javad [facility] No Information Mar-2 8 1 Inola Robbie. [address], [address], [place], [place], [address], [place]. tel:[phone] Referring Provider: Sabino Brantley, [address] [facility] [address], [place], [address] . tel:[phone] [employer] [facility], [address], [place], [place], [address], [place] tel:[phone] SEC [place] [employer] Marjan No Information Mar-1 7- 1 Inola Robbie. [address], [address], [place], [place], [address], [place]. tel:[phone] Referring Provider: Sabinoreyna Brantley, [address] [facility] [address], [place], [address] . tel:[phone] Office/outpa tient Visit, Est [facility], [address], [place], [place], [address], [place] tel:[phone] SEC Doniphan [place] Professional No Information Mar-0 8-201 1 Grecia Avalos. [address] [place] [address], [place], [place], [address], [place]. tel:[phone] Referring Provider: Sabino Brantley, [address] [facility] [address], [place], [address] . tel:[phone] [facility], [address], [place], [place], [address], [place] tel:[phone] SEC Mike [place] Professional No Information Feb-1 4-201 1 Wankum Sabino. [address] [facility], [facility] [address], [place], [place], [address], [place]. tel:[phone] [facility], [address], [place], [place], [address], [place] tel:[phone] SEC Don[place]han [place] Professional No Information Feb-0 4-201 0 Wankum Sabino. [address] [facility], [facility] [place], [address], [place]. tel:[phone] [facility], [address], [place], [place], [address], [place] tel:[phone] SEC Doniphan [place] Professional No Information Feb-0 3-200 9 Wankum Sabino. [address] [facility], [facility] [place], [address], [place]. tel:[phone] [facility], [address], [place], [place], [address], [place] tel:[phone] SEC Doniphan SADIE Professional No Information 0 8 Zev Gallo. [address], [address], [place], [place], [address], [place]. [phone] Office/outpa tient Visit, [facility], [address], [place], [place], [address], tel:[phone] [facility] No Information 7 Zev Gallo. [address], [address], [place], [place], [address], [place]. tel:[phone] Family History Family Member Type Diagnosis Age At Onset Grandfather (p) Problem (finding) Diabetes mellitus Brother Problem (finding) diabetes melli tus in first degree relative Father Problem (finding) diabetes melli tus in first degree relative Mother Problem (finding) diabetes melli tus in first degree relative Payers Payer name Insurance type Covered green party ID Authoriza tion(s) [employer] Mdcr Gold Adv Prime CI [id number] Social History Type Description Quantity Date Captured Comments Alcohol Use Details No Caffeine Use Details > 32oz per day Tobacco Use Status Current non-smoker Smoking Status Never smoker Non-Smoking Tobacco Use Details : No Details Available : No Details Available Sex Male Chief Complaint And Reason For Visit From encounter dated '09/15/2023 13:00'. Dry eye evaluation (chief complaint). Description: The 83 year old patient presents for evaluation of Dry eye evaluation in the right eye and left eye. Pt. states his eyes are feeling fine without dryness. Pt feels his vision is stable. Reason For Referral Reason For Referral No Information Plan Of Treatment Date Type Action Status Patient Education Type 2 Diabetes: Care I nstructions completed Patient Education Type 2 Diabetes: Care I nstructions completed History Of Present Illness Encounter Date Complaint History Of Prese nt Illness Dry eye evaluation The 83 year o ld patient presents for evaluation of Dry eye evaluation in the right eye and left eye. Pt. states his eyes are feeling fine without dryness. Pt feels his vision is stable. Glaucoma evaluation The 83 year old patient presents for a 1 month glaucoma evaluation per Dr. Griffiths. Patient uses AT prn. diabetic eye exam The 83 year ol d patient presents for a complete Type II diabetic exam ou. Patient is pre diabetic no medication. Patient is pseudo ou with Crystal lens ou and yag cap ou. Patient states he is getting more matter in his eyes. Diabetic eye exam The 82 year ol d patient presents for evaluation of Diabetic eye exam in the right eye and left eye. Patient denies any changes with eyes. VA is stable OU. Patient is Pre Diab, no medications, and doesn't check BS. Followed by PCP Complete Exam The 81 year old client presents for evaluation of Complete Exam in the right eye and left eye. Hx of Crystalens OU, YAG PC OU, PVD OU, AMD OU, and RPE Mottling OU. Patient denies any problems or changes with eyes. VA seems stable OU. Patient is Prediab, a1c 6.3, and PCP monitors BS. Diabetic eye exam The 80 year ol d male presents for evaluation of Diabetic eye exam in the right eye and left eye. Hx of Crystalens OU, YAG PC OU, PVD OU, RCE OS, and RPE Mottling OU. Patient denies any changes with his eyes. Patient is a Type 2 diab x 11 years, NOT on Insulin, BS checked today @ 104, a1c 6.4, and PCP treats his diab. Patient recently dx with IPF. Complete Exam The 79 year old male presents for evaluation of Complete Exam in the right eye and left eye. Hx of Crystalens PCIOL OU, YAG PC OU, RPE mottling OU, RCE OS, and STEPHEN OU. pt is NIDDM II x 10 yrs, followed by PCP, pt reports BS was 107 before [place] and A1C was 6.7 in April. Pt denies any changes in VA, OU, since last appt. Pt report he uses AFT GEL PRN and no pain or irritation today, OU. Complete Exam The 78 year old male presents for a complete exam ou. Patient has Crystalens ou and YAG CAPS ou. Patient takes AREDS. Patient denies any changes in vision ou. Complete Exam The 77 year old male presents for Complete Exam in the right eye and left eye. Hx of Crystalens PCIOL OU, YAG PC OU, ptosis OU, and AMD OU. Pt uses Finasteride. Pt is diet controlled NIDDM II x 7 yrs. PCP follows DM. Pt reports BS was 104 couple wks ago and A1C was 5.7 about 3 mos ago. Pt reports he has itchy, watery eyes, OU, intermittent, x yrs, and pt believes it is due to allergies. Pt reports he uses AFT PRN OU. Pt reports he hasn't noticed any changes in VA, DV and NV, OU, and wears OTC Readers for NV. diabetic eye exam The 76 year ol d male presents for a complete Type II diabetic eye exam. Patient takes no medication for DM. Patient has a hx of [place] ou with yag caps ou. Patient denies any changes in vision ou. Tearing and burning The 74 year old male presents for a complete exam. Patient c/o ou tearing and itching. Patient denies any changes in vision. Functional Status Date Functional Assessmen t No Information Instructions Date Instruction Additional Infor angelo Impression/Plan Impression/Plan Impression/Plan Impression/Plan Impression/Plan Impression/Plan Impression/Plan Impression/Plan Impression/Plan - Guicho boone understands he has significant dry eyes. Recommend Gel tears QID OU, sample given. Related to Dry eye syndrome of bilateral lacrimal glands Impression/Plan - IO L's in good position, open pc OU. Vision is good and IOP is stable. Related to Presence of intraocular lens Impression/Plan - Di abetes type II: no background retinopathy, no signs of neovascularization noted. Discussed ocular and systemic benefits of blood sugar control. DM letter sent to Dr Almazan. Return to clinic in 1 year for DM exam or sooner with problems. Related to Type 2 diabetes mellitus without complications Impression/Plan - Co ndition appears stable OU. Continue AREDS 2 formula, will monitor. Related to RPE mottling of macula Presence of intraocu lar lens - Educational material provided Related to Presence of intraocular lens Type 2 diabetes devon itus without complications - Educational material given Related to Type 2 diabetes mellitus without complications Follow up - Return i n 1 year with Sabino Brothers M.D. for Complete Exam. Impression/Plan - Di scussed diagnosis in detail with patient. Diabetes type II: no background retinopathy, no signs of neovascularization noted. Discussed ocular and systemic benefits of blood sugar control. DM letter sent to Dr Almazan. IOL's in good position; open pc. No change RPE OU. Return to clinic in 1 year for complete diabetic exam or sooner with any problems. - Return in 1 year w denis Brothers M.D. for Complete Diabetic Exam Related to See list of assessments above - Diabetes no backgr ound retinopathy, no signs of neovascularization noted. DM letter to Dr Almazan. Return in 1 year for complete diabetic exam or sooner with any problems. Related to See list of assessments above - RTC in 1 year for a complete e xam Related to See impression: general plan General plan -FOLLOW -UP SURGERY NOS - Good results after having Yag PC OD. RTC in 1 year for a complete exam. Educational materials provided:about today's exam. Related to See impression: general plan - RTC in 1 month for post op to Yag PC OD Related to See impression: general plan General plan -LENS R EPLACEMENT NEC -AFTR-CATAR OBSCUR VISION - Discussed diagnosis in detail with patient. Discussed risks and benefits of Yag PC OD and patient understands. Will proceed with laser today. RTC in 1 month for post op to Yag PC OD. Educational materials provided:about today's exam.Good results after Yag PC OD today. Related to See impression: general plan - yag pc od Related to AFTR- CATAR OBSCUR VISION clouded pc od-had ya g os - Educational materials provided to patient. 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 no specialized language instructor - DM letter pseudo ou with capsu lotomy os nad pc haze od - pt will call if thinks needs yag pc od - 3 months or sooner prn Related to FOLLOW-UP SURGERY NOS FOLLOW-UP SURGERY NO S, OS - established, stable - vision improved - will continue to monitor1 month sp yag cap osretina flat without signs of traction or detachment - reassured patient and discussed rd signs/symptoms---pt to report any worsening flashes, floaters, curtaining over vision Related to FOLLOW-UP SURGERY NOS - 1 Month Related to FOLLO W-UP SURGERY NOS FOLLOW-UP SURGERY NO S, OS - established, stable - vision improved - controlled with meds3 days sp yag cap ospt notes significant improvement in vadoing well - suture removed od at sl with pre/post tobramycinstart tobramycin tid for 3 days od only Related to FOLLOW-UP SURGERY NOS Opacified Capsule, O S - established, worsening - vision affected - will improve with surgery - yag cap today; pt tolerated well iop stable after proceduresuture os removed at sl with post procedure dilute betadine flushed with bss rtc [address] 3 days bid status post suture removal Related to Opacified Capsule - 2 Months Related to FOLLO W-UP SURGERY NOS - 3 Days Related to Opaci fied Capsule FOLLOW-UP SURGERY NO S, OD - established, stable - vision improved - controlled with meds - pt has finished tobradex taper Related to FOLLOW-UP SURGERY NOS - 1 Month Related to Opaci fied Capsule - 1 mos Related to FOLLO W-UP SURGERY NOS FOLLOW-UP SURGERY NO S, OD - improving - vision improved - controlled with medsiop well-controlled - dc alphagantobradex/diclofenac taper per written instructions Related to FOLLOW-UP SURGERY NOS Opacified Capsule, O S - established, stable - vision affected - will improve with surgery - plan for yag cap os next fu visit Related to Opacified Capsule FOLLOW-UP SURGERY NO S, OD - improving - vision improved - controlled with meds - tobradex qid od Related to FOLLOW-UP SURGERY NOS- IOP controlled with meds Ocular Hypertension, OD - new prob, no addtl w/u needed - vision not threatened - will treat with medsiop spike sp ceiolimproved with gtts 40>26 - start alphagan bid Related to Ocular Hypertension - 1 Week Related to FOLLO W-UP SURGERY NOS- IOP controlled with meds - 1 Week Related to Ocula r Hypertension Cataract, Nuclear Sc lerosis, OD - improving - vision affected - may improve with surgery - Cataract(s) accounts for patient's complaints. Discussed all risks, benefits, procedures and recovery. Patient understands changing glasses will not improve vision. Patient desires to have surgery, recommend PE w/IOL. 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
--- OUTSIDE RECORDS SUMMARY | 2024-09-13 12:41 | XMS_ITS | Encounter Summary ---
Author Organization [facility] Address [address] [place] [address] Care Team Providers Care Discharge Rn Name Role Phone Cecilio Almazan MD Primary Care Provider [phone] Cecilio Almazan MD Primary Care Provider [phone] Chet Sorto MD Primary Care Provider Glenn Ya MD Unavailable [phone] Jose Ghotra MD Unavailable [phone] Encounter Details Date Type Department Care Team (Late st Contact Info) Description 08/18/2011 [place] Only [facility] [place] Information Management [address] [place] [id number] Scanning, Provider Social History Tobacco Use Types Packs/Day Years Used Date Smoking Tobacco: Never Assessed Sex and Gender Information Value Date Recorded Sex Assigned at Not on file 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 Gender Identity Not on file Sexual Orientation Not on file documented as of this encounter Plan of Treatment Not on file documented as of this encounter Procedures Procedure Name Priority Date/Time Associated Diagnosis Comments SCAN - LABS 08/18/2011 documented in this encounter Results * SCAN - LABS (08/18/2011) us Provider Scanning Final Result documented in this encounter Visit Diagnoses Not on filedocumented in this encounter Care Teams Discharge Rn Relationship Specialty Start Date End Date Cecilio Almazan MD PCP - General 07/20/14 02/03/24 Cecilio Almazan MD PCP - General 01/13/08 07/19/14 Chet Sorto MD PCP - General Family Medicine 02/04/24 Glenn Ya MD [address] [place] [address] Consulting Physician Urology 02/04/24 Jose Ghotra MD [address] [place] [address] Referring Physician Critical Care Med 02/04/24 documented as of this encounter
--- OUTSIDE RECORDS SUMMARY | 2024-09-13 12:42 | XMS_ITS | Encounter Summary ---
Author Organization [facility] Address [address] [place] [address] Phone Care Team Providers Care Geographic Information System Surveyor Name Role Phone Cecilio Almazan MD Primary Care Provider [phone] Chet Sorto MD Primary Care Provider Glenn Ya MD Unavailable [phone] Jose Ghotra MD Unavailable [phone] Encounter Details Date Type Department Care Team (Late st Contact Info) Description 09/03/2017 Orders Only [facility] ProviderDakota MD [address] [place] [address] Social History Tobacco Use Types Packs/Day Years Used Date Smoking Tobacco: Never Smokeless Tobacco: Never Alcohol Use Standard Drinks/Week Comments No 0 (1 standard drink = 0.6 oz pur e alcohol) Sex and Gender Information Value Date Recorded Sex Assigned at Not on file 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 us Historical Provider LAB BLOOD ORDERABLES Shania l Result documented in this encounter Visit Diagnoses Not on filedocumented in this encounter Care Teams Geographic Information System Surveyor Relationship Specialty Start Date End Date Cecilio Almazan MD PCP - General 07/20/14 02/03/24 Chet Sorto MD PCP - General Family Medicine 02/04/24 Glenn Ya MD [address] [place] [address] Consulting Physician Urology 02/04/24 Jose Ghotra MD [address] [place] [address] Referring Physician Critical Care Med 02/04/24 documented as of this encounter
--- OUTSIDE RECORDS SUMMARY | 2024-09-13 12:42 | XMS_ITS | Referral Summary ---
Author Organization [facility] Address [address] [place] [address] Care Team Prov[address] Care Court Specialist Name Role Phone Chet Sorto MD Primary Care Provider Glenn Ya MD Unavailable [phone] Jose Ghotra MD Unavailable [phone] Encounters Date Type Department Care Team Description 08/11/2024 2:15 PM CDT Office Visit [facility] Primary Care at [address] [phone] Chet Sorto MD Dyslipidemia associated with type 2 diabetes mellitus (HCC) (Primary Dx); Benign prostatic hyperplasia without urinary obstruction; Type 2 diabetes mellitus with hyperlipidemia (HCC); ILD (interstitial lung disease) (HCC); Diarrhea, unspecified type; Vitamin D deficiency; Actinic keratosis 08/09/2024 Telephone [facility] Primary Care at [address] [phone] Chet Sorto MD Appointment 07/28/2024 Results Follow-Up [facility] Primary Care at [address] [phone] Chet Sorto MD 07/26/2024 9:50 AM CDT Lab [address] [address] Type 2 diabetes mellitus with hyperlipidemia (HCC); Dyslipidemia associated with type 2 diabetes mellitus (HCC); Vitamin D deficiency 07/25/2024 Telephone [facility] Primary Care at [address] [place] [address] Chet Sorto MD Additional Services Or Orders from Last 3 Months Allergies Active Allergy Reactions Criticality Noted Date Comments Latex Blisters High 03/21/2019 Medications multivitamin tablet tablet take 1 tablet by oral route every day with food 0 0 5 Active cinnamon bark (CINNAMON) 500 mg capsule 1 po q day 0 0 5 Active lancets (onetouch ultrasoft) misc test q day 100 5 1 Active blood glucose diagnostic (ONE TOUCH TEST) strip test q day 100 5 1 Active carboxymethylce llulose (REFRESH) 1 % ophthalmic liquid gel drops Administer 1 drop into both eyes as needed Active loperamide (IMODIUM) 2 mg capsule Take 1 capsule (2 mg total) by mouth 4 (four) times a day as needed Active cholecalciferol (VITAMIN D-3) 2000 unit tablet Take 1 tablet (2,000 Units total) by mouth daily 1 Active simvastatin (ZOCOR) 20 mg tablet TAKE 1 TABLET NIGHTLY 90 tablet 3 4 Active omega 5-gno-roq-fish oil 1,200 (144-216) mg capsule Take by mouth Active nintedanib (Ofev) 100 mg capsule Take 1 capsule (100 mg total) by mouth 2 (two) times a day Active Active Problems Problem Noted Date Diagnosed Date Preventative health care 02/04/2024 Assessment & Plan (02/04/2024 12:46 PM CDT): - New or chronic worsening conditions: T2DM, Vitamin D deficiency, left ear impacted - Mental health: no significant psychiatric/mental health conditions affecting her day to day functioning - Dental health: Recommend regular dental care and cleaning. Discussed importance of regular tooth brushing, flossing, and dental visits. - Nutrition: Recommend moderation in sodium/caffeine intake, saturated fat and cholesterol, caloric balance, sufficient intake of fresh fruits, vegetables - Exercise: Recommend to exercise at least 30 minutes moderate to vigorous exercise most days of the week. (minimum 150 minutes weekly) - Immunizations: Age and sex appropriate immunizations reviewed and offered - Prostate cancer screening: not indicated - Colon cancer screening: not indicated - Lung cancer screening: not indicated No results found for: PSA Vitamin D deficiency 10/09/2020 Assessment & Plan (08/11/2024 2:10 PM CDT): - chronic condition, better controlled/at goal - currently takes Vitamin D3 supplement 4-5000 international units daily - he was started on Vitamin D for hair loss by prior PCP - most recent labs as shown below The current medical regimen is effective; continue present plan and medications. Lab Results Component Value Date 25HYDROVITD 37 07/26/2024 25HYDROVITD 32 02/08/2024 25HYDROVITD 30 04/14/2023 25HYDROVITD 33 10/07/2021 25HYDROVITD 21 (L) 04/01/2021 Assessment & Plan (02/04/2024 11:43 AM CDT): - chronic condition, not at goal - currently takes Vitamin D3 supplement 2000 international units daily --> recommend increasing to 3473-9924 mg daily - he was started on Vitamin D for hair loss by prior PCP - most recent labs as shown below - recheck labs, order placed Lab Results Component Value Date 25HYDROVITD 30 04/14/2023 25HYDROVITD 33 10/07/2021 25HYDROVITD 21 (L) 04/01/2021 25HYDROVITD 25 (L) 09/26/2020 Assessment & Plan (06/27/2023 2:44 PM [employer]): Continue vitamin-D supplementation check levels yearly Assessment & Plan (10/30/2022 2:32 PM CDT): Continue supplementation check level before next visit. Assessment & Plan (05/01/2022 5:55 PM [employer]): Continue current supplementation and check level in 1 year. Assessment & Plan (10/22/2021 2:30 PM CDT): Continue current supplementation and check level in 1 year. Assessment & Plan (04/11/2021 2:06 PM [employer]): Increase vitamin-D to 2000 units daily and check level before next visit. Assessment & Plan (10/09/2020 1:51 PM CDT): Start 1000 units daily and check level before next visit. Diarrhea 10/09/2020 Assessment & Plan (08/11/2024 2:09 PM CDT): - chronic condition, persistent - secondary to his Ofev medication from pulmonology - uses Imodium PRN for his diarrhea Assessment & Plan (02/04/2024 11:41 AM CDT): - chronic condition, persistent - secondary to his Ofev medication from pulmonology - uses Imodium PRN for his diarrhea Assessment & Plan (10/09/2020 1:52 PM CDT): Most likely due to his Ofev. If symptoms do not resolve with reduced dose may want to hold it to confirm our suspicions. May need colonoscopy if no improvement. Orthostasis 01/02/2020 Assessment & Plan (01/30/2020 11:07 AM CDT): Could be from dehydration or from his positioning in the garden. Recommended increasing hydration and sitting and standing slowly in the future. Call back if symptoms continue. Pulmonary embolism 07/05/2019 Overview (09/23/2019): CT reveiwed by his asphalt engineer and radiologist at [facility] who felt PE's were lymph nodes next to airways and not PE's thus anticoagulation discontinued 08/2019. Assessment & Plan (09/12/2019 8:52 PM CDT): Recommend 6 months of anticoagulation. 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 Matt - currently on Ofev 100mg BID - started on supplemental oxygen around 11/2023 2% oxygen at night for nocturnal hypoxemia - gets PFTs twice a year and gets examined twice a year as well - continue management per Pulmonology Assessment & Plan (06/27/2023 2:44 PM [employer]): Continue ofev and follow up with his asphalt engineer as they direct Assessment & Plan (10/30/2022 2:32 PM CDT): Continue OFEV and follow-up with asphalt engineer as they direct. Assessment & Plan (10/22/2021 2:29 PM CDT): Continue OFEV follow-up with his asphalt engineer as they direct. Does not currently qualify for [facility] disability parking placard with FEV1 greater than 1. Assessment & Plan (04/11/2021 2:06 PM [employer]): Continue his ofev and follow-up with asphalt engineer as they direct. Assessment & Plan (10/09/2020 1:51 PM CDT): Currently on reduced dose Ofev due to side effects of diarrhea and weight loss Assessment & Plan (03/26/2020 10:52 AM [employer]): Continue ofev and follow-up with his asphalt engineer as they direct. Assessment & Plan (09/23/2019 6:16 PM CDT): Follow-up with his asphalt engineer as they direct. Assessment & Plan (09/12/2019 8:52 PM CDT): Follow-up with his asphalt engineer for further evaluation. Dry mouth 03/21/2019 Overview (03/21/2019): Patient reports negative rheumatology workup. Assessment & Plan (02/04/2024 11:54 AM CDT): - chronic condition - Patient reports negative rheumatology workup per former PCP in 2019 He had been using Yrhb-hyi-rqbqfvc products as needed. - states it seemed to coincide with the lung problem - states he was told it is to be expected with Ofiv - he was recommended to use mouth wash OTC - also has dry nose, and dry eyes - his eye doctor tested him and found vitamin A deficiency but there was no improvement with vitamin A supplementation Assessment & Plan (03/21/2019 10:52 AM [employer]): Hofj-kqy-cfgxbra products as needed. EUN positive 03/23/2018 Overview (03/21/2019): Negative rheumatology workup per patient. Assessment & Plan (03/23/2018 9:14 AM [employer]ERING): With symptoms of sicca syndrome and positive EUN panel, will have him see Dr. Lopez for further evaluation. Dry eye syndrome of bilateral lacrimal glands Type 2 diabetes mellitus with hyperlipidemia Assessment & Plan (08/11/2024 2:10 PM CDT): - chronic condition - initial diagnosis [id number] - most recent labs as shown below - not on any medications, currently managed by lifestyle - up to date with eye exam, and Urine albumin creatinine ratio - Continue current management Lab Results Component Value Date HGBA1C 6.3 (H) 07/26/2024 HGBA1C 6.6 (H) 01/20/2024 HGBA1C 6.5 05/07/2023 Lab Results Component Value Date MICROALBUR 0.5 03/03/2019 LDLCALC 86 07/26/2024 CREATININE 0.88 07/26/2024 Assessment & Plan (02/04/2024 12:09 PM CDT): - chronic condition - initial diagnosis [id number] - most recent labs as shown below - not on any medications, currently managed by lifestyle - up to date with eye exam, and Urine albumin creatinine ratio - will continue to follow up Lab Results Component Value Date HGBA1C 6.6 (H) 01/20/2024 HGBA1C 6.5 05/07/2023 HGBA1C 6.2 (H) 10/15/2022 Lab Results Component Value Date MICROALBUR 0.5 03/03/2019 LDLCALC 74 01/20/2024 CREATININE 0.77 (L) 01/20/2024 Assessment & Plan (06/27/2023 2:44 PM [employer]ING): A1c, LDL, and blood pressure currently well controlled on current regimen. Check a yearly diabetic eye exam and blood sugars daily. Monofilament testing is intact. Assessment & Plan (10/30/2022 2:32 PM CDT): A1c, LDL, and blood pressure currently well controlled on current regimen. Check a yearly diabetic eye exam and blood sugars daily. Monofilament testing is intact. Assessment & Plan (05/01/2022 5:55 PM [employer]): A1c, LDL, and blood pressure currently well controlled on current regimen. Check a yearly diabetic eye exam and blood sugars daily. Monofilament testing is intact. Assessment & Plan (10/22/2021 2:29 PM CDT): A1c, LDL, and blood pressure currently well controlled on current regimen. Check a yearly diabetic eye exam and blood sugars daily. Monofilament testing is intact. Assessment & Plan (04/11/2021 2:06 PM [employer]): A1c, LDL, and blood pressure currently well controlled on current regimen. Check a yearly diabetic eye exam and blood sugars daily. Monofilament testing is intact. Assessment & Plan (10/09/2020 1:50 PM CDT): A1c, LDL, and blood pressure currently well controlled on current regimen. Check a yearly diabetic eye exam and blood sugars daily. Monofilament testing is intact. Assessment & Plan (03/26/2020 10:51 AM [employer]): A1c, LDL, and blood pressure currently well controlled on current regimen. Check a yearly diabetic eye exam and blood sugars daily. Monofilament testing is intact. Assessment & Plan (09/23/2019 6:16 PM CDT): A1c, LDL, and blood pressure currently well controlled on current regimen. Check a yearly diabetic eye exam and blood sugars daily. Monofilament testing is intact. Assessment & Plan (03/21/2019 10:52 AM [employer]): A1c, LDL, and blood pressure currently well controlled on current regimen. Check a yearly diabetic eye exam and blood sugars daily. Monofilament testing is intact. Assessment & Plan (09/20/2018 10:09 AM CDT): A1c, LDL, and blood pressure currently well controlled on current regimen. Check a yearly diabetic eye exam and blood sugars daily. Take a daily aspirin. Monofilament testing is intact. Assessment & Plan (03/23/2018 9:13 AM [employer]): A1c, LDL, and blood pressure currently well controlled on current regimen. Check a yearly diabetic eye exam and blood sugars daily. Take a daily aspirin. Monofilament testing is intact. Assessment & Plan (09/10/2017 10:29 AM CDT): A1c, LDL, and blood pressure currently well controlled on current regimen. Check a yearly diabetic eye exam and blood sugars daily. Take a daily aspirin. Monofilament testing is intact. Assessment & Plan (03/19/2017 6:36 PM [employer]): A1c, LDL, and blood pressure currently well controlled on current regimen. Check a yearly diabetic eye exam and blood sugars daily. Take a daily aspirin. Monofilament testing is intact. Dyslipidemia associated with type 2 diabetes giancarlo jenkins 09/17/2013 Assessment & Plan (08/11/2024 2:14 PM CDT): - chronic condition - status: is adequately controlled. - current management/medications: Simvastatin 20 mg nightly and fish oil supplement Holbrook-3 takes 3600 mg daily - other comorbid conditions:T2DM - patient is compliant with medications. - most recent LDL as shown below - maintain a healthy weight, diet - will monitor closely The current medical regimen is effective; continue present plan and medications. Lab Results Component Value Date LDLCALC 86 07/26/2024 Lab Results Component Value Date ALT 13 07/26/2024 AST 19 07/26/2024 ALKPHOS 89 07/26/2024 BILITOT 0.4 07/26/2024 Assessment & Plan (02/04/2024 11:45 AM CDT): - chronic condition - status: is adequately controlled. - current management/medications: Simvastatin 20 mg nightly and fish oil supplement Holbrook-3 takes 3600 mg daily - other comorbid conditions:T2DM - patient is compliant with medications. - most recent LDL as shown below - maintain a healthy weight, diet - will monitor closely - continue current management Lab Results Component Value Date LDLCALC 74 01/20/2024 Lab Results Component Value Date ALT 12 01/20/2024 AST 17 01/20/2024 ALKPHOS 88 01/20/2024 BILITOT 0.4 01/20/2024 Assessment & Plan (06/27/2023 2:44 PM [employer]): Well controlled on current therapy and will check a lipid panel and LFTs in 6 months. Assessment & Plan (10/30/2022 2:32 PM CDT): Well controlled on current therapy and will check a lipid panel and LFTs in 6 months. Assessment & Plan (05/01/2022 5:56 PM [employer]): Well controlled on current therapy and will check a lipid panel and LFTs in 6 months. Assessment & Plan (10/22/2021 2:29 PM CDT): Well controlled on current therapy and will check a lipid panel and LFTs in 6 months. Assessment & Plan (04/11/2021 2:06 PM [employer]): Well controlled on current therapy and will check a lipid panel and LFTs in 6 months. Assessment & Plan (10/09/2020 1:51 PM CDT): Well controlled on current therapy and will check a lipid panel and LFTs in 6 months. Assessment & Plan (03/26/2020 10:51 AM D[employer]ING): Well controlled on current therapy and will check a lipid panel and LFTs in 6 months. Assessment & Plan (09/23/2019 6:16 PM CDT): Well controlled on current therapy and will check a lipid panel and LFTs in 6 months. Assessment & Plan (03/21/2019 10:52 AM [employer]): Well controlled on current therapy and will check a lipid panel and LFTs in 6 months. Assessment & Plan (09/20/2018 10:09 AM CDT): Well controlled on current therapy and will check a lipid panel and LFTs in 6 months. Assessment & Plan (03/23/2018 9:13 AM [employer]): Well controlled on current therapy and will check a lipid panel and LFTs in 6 months. Assessment & Plan (09/10/2017 10:29 AM CDT): Well controlled on current therapy and will check a lipid panel and LFTs in 6 months. Assessment & Plan (03/19/2017 6:36 PM [employer]): Well controlled on current therapy and will check a lipid panel and LFTs in 6 months. Benign prostatic hyperplasia without urinary obs truction 09/17/2013 Overview (02/04/2024): Follows with Urology Assessment & Plan (08/11/2024 2:19 PM CDT): - Chronic condition, not at goal but improved - Nocturia 3-4 times a night but declines medications, states he can go right back to sleep - States used to be worse, S/p TURP 2-3 years ago and symptoms have got better - Not on any medication currently, he did try medications in the past Assessment & Plan (02/04/2024 11:50 AM CDT): - Chronic condition, not at goal but improved - Nocturia 2-3 times a night - States used to be worse, S/p TURP 2-3 years ago and symptoms have got better - Not on any medication currently, he did try medications in past Assessment & Plan (10/09/2020 1:51 PM CDT): Follow-up with his urologist to ensure that he is not obstructed to account for his new urinary complaints. He may need urodynamics. Continue finasteride for now. Assessment & Plan (03/26/2020 10:52 AM [employer]): Well controlled on finasteride. Assessment & Plan (09/23/2019 6:17 PM CDT): Continue finasteride follow-up with his urologist as they direct. Assessment & Plan (03/21/2019 10:52 AM [employer]): Continue finasteride and follow up with his urologist as they direct. Assessment & Plan (09/20/2018 10:10 AM CDT): Stable on his finasteride and should follow up with his urologist for PSAs as they direct. Assessment & Plan (03/23/2018 9:13 AM [employer]): Well controlled on finasteride and should follow up with his urologist regarding PSAs. Assessment & Plan (09/10/2017 10:29 AM CDT): Continue finasteride and PSAs are followed by his urologist. Assessment & Plan (03/19/2017 6:36 PM [employer]): Stable on finasteride and should follow up with his urologist as they direct. Atopic rhinitis 09/17/2013 Assessment & Plan (02/04/2024 11:41 AM CDT): - chronic condition, improved - uses to take OTC medications but not anymore Assessment & Plan (05/02/2019 5:56 PM [employer]): Nasal mucosa is erythematous and edematous. Instructed patient on importance of using a nasal spray such as Flonase two sprays each nostril once a day. Educated patient on ensuring during use the spray is to be inserted by the tip and point it towards the same side ear. Flonase can be purchased over the counter. Allergies can flare with the change of the weather/season or around harvest time. Patient instructed to follow up in office if symptoms worsen or persist. Assessment & Plan (03/21/2019 10:53 AM D[employer]ING): Well controlled without medication. Assessment & Plan (09/20/2018 10:10 AM CDT): Well controlled without medication. Assessment & Plan (03/23/2018 9:13 AM D[employer]ERING): Well controlled without medication currently Assessment & Plan (09/10/2017 10:29 AM CDT): Claritin p.r.n. Assessment & Plan (03/19/2017 6:37 PM [employer]ERING): Claritin as needed. Resolved Problems Problem Noted Date Diagnosed Date Resolved Date Alopecia 10/09/2020 02/04/2024 Assessment & Plan (10/09/2020 1:51 PM CDT): Possibly from his vitamin-D deficiency. Start replacement and check level before next visit. Check iron levels before next visit. Interstitial lung disease 01/17/2020 Overview (01/17/2020): Added automatically from request for surgery [id number] Chronic cough 06/22/2019 02/04/2024 Overview (06/22/2019): Cough began in March 2019. Have tried albuterol, Flonase, and patient has been treated for pneumonia due to chest X-ray in March. Assessment & Plan (06/22/2019 3:18 PM [employer]ERING): Discussed importance of chest CT due to continued symptoms as well as crackles throughout lower lobes of lungs. CT with contrast ordered to R/O emphysema, malignancy, chronic bronchitis, or underlying autoimmune disorder. Patient did have a positive EUN in 2017, was seen by rheumatology and states they were unable to make a definitive diagnosis. Patient O2 sat within normal range, denies any SOB or other concerns. In the mean time we will begin Symbicort 2 puffs BID. Will notify patient once results of CT are back. Patient instructed to return to clinic or go to the emergency department with absolutely any worsening of symptoms. Class 2 obesity with body ma ss index (BMI) of 35.0 to 35.9 in adult 06/22/2019 02/04/2024 Assessment & Plan (09/12/2019 8:52 PM CDT): Patient is encouraged to lose weight with a combination of caloric reduction and increased exercise. Assessment & Plan (06/22/2019 3:18 PM [employer]ING): Benefits of weight loss discussed. Reviewed recommendations for daily intake & activity 20-30 minutes/day. Presence of intraocular lens 03/19/2017 02/04/2024 Healthcare maintenance 03/19/201708/11 Assessment & Plan (10/30/2022 2:33 PM CDT): Flu shot each February. Tetanus booster every 10 years. COVID booster when available. Pneumovax 23/Prevnar 13 completed. Deferring PSA and colonoscopy due to age. Will see him back in 6 months with lab sooner if needed. Assessment & Plan (10/22/2021 2:30 PM CDT): Flu shot each February. Tetanus booster due in January. COVID vaccine completed. Pneumovax completed. Deferring PSA and colonoscopy due to age. Will see him back in 6 months with lab sooner if needed. Assessment & Plan (10/09/2020 1:52 PM CDT): We discussed a comprehensive list of medical conditions and proposed recommendations for each. We discussed the importance of increased exercise, fall prevention, proper nutrition, and suggested joining [employer] [facility] to accomplish most of these goals. Patient was given an age appropriate Medicare preventive services checklist. Please see the EMR regarding details of their health risk assessment and preventive services checklist. Will see him back in 6 months with lab sooner if needed. Assessment & Plan (09/23/2019 6:17 PM CDT): We discussed a comprehensive list of medical conditions and proposed recommendations for each. We discussed the importance of increased exercise, fall prevention, proper nutrition, and suggested joining [facility] to accomplish most of these goals. Patient was given an age appropriate Medicare preventive services checklist. Please see the EMR regarding details of their health risk assessment and preventive services checklist. Will see him back in 6 months with lab sooner if needed. Assessment & Plan (03/23/2018 9:14 AM D[employer]ERING): We discussed a comprehensive list of medical conditions and proposed recommendations for each. We discussed the importance of increased exercise, fall prevention, proper nutrition, and suggested joining [facility] to accomplish most of these goals. Patient was given an age appropriate Medicare preventive services checklist. Please see the EMR regarding details of their health risk assessment and preventive services checklist. Will see him back in 6 months with fasting lab sooner if needed. Assessment & Plan (03/19/2017 6:37 PM D[employer]ERING): We discussed a comprehensive list of medical conditions and proposed recommendations for each. We discussed the importance of increased exercise, fall prevention, proper nutrition, and suggested joining [facility] to accomplish most of these goals. Patient was given an age appropriate Medicare preventive services checklist. Please see the EMR regarding details of their health risk assessment and preventive services checklist. Will see him back in 6 months with fasting lab sooner if needed At low risk for fall 03/19/2017 06/21/2 022 Assessment & Plan (10/09/2020 1:52 PM CDT): Timed get up and go test normal. Assessment & Plan (09/23/2019 6:17 PM CDT): Timed get up and go test normal. Assessment & Plan (03/23/2018 9:14 AM DRAFTER CIVIL ENGINEERING): Timed get up and go test normal. Assessment & Plan (03/19/2017 6:37 PM DRAFTER [employer]IVIL ENGINEERING): Timed get up and go test normal. Constipation 03/19/2017 02/04/2024 Assessment & Plan (03/19/2017 6:37 PM DRAFTER CIVIL ENGINEERING): Add Metamucil and MiraLax. If no improvement would recommend moving up his colonoscopy given his family history of colon cancer. Immunizations Immunization Administration Dates Next Due Influenza, Quad, Adjuvantate d, Intramuscular 02/05/2023,02/18/2022 Influenza, Quadrivalent, Hig h Dose, Preservative Free, Intrr 02/13/2021,02/03/2020 Influenza, Split 02/15/2010 Influenza, Trivalent, Adjuva nted, Intramuscular 02/24/2024 Influenza, Trivalent, High D ose, Split, Preservative Free, Intramuscular 02/20/2019,03/19/2017,02/28/2016,01/25 Influenza, Trivalent, IM (MDV) 3,02/26/2012,02/01/2011,01/26,01/26/2008 Influenza, Unspecified 08/11/2024(Deferr ed: Patient Refused),05/04/2023(Deferred: Patient Refused),01/02/2020(Deferred: Patient Refused),01/03/2019,02/03/2018 Moderna SARS-CoV-2 Monovalen t Vaccination (12+ YRS) 06/29/2020,06/01/2020 Pneumococcal Conjugate PCV 13 01/25/2015 Pneumococcal Polysaccharide PPV23 11/15/2010 RSV Vaccine, Pref, Recombina nt, Subunit, Adjuvanted, PF, IM (Arexvy) 02/05/2023 Td, adsorbed 07/14/2001 Tdap 03/25/2022,01/15/2012 ZOSTER LIVE 05/05/2006 ZOSTER Recombinant 06/24/2019,03/23/2019 Social History Tobacco Use Types Packs/Day Years Used Date Smoking Tobacco: Never Smokeless Tobacco: Never Tobacco Cessation:Counseling Given: Yes Alcohol Use Standard Drinks/Week Comments No 0 [...] points, staff should administer the PHQ-9) 0 08/11/2024 Sex and Gender Information Value Date Recorded Sex Assigned at Not on file Legal Sex Male 12:42 AM DRAFTER [employer]ER[employer] Gender Identity Not on file Sexual Orientation Not on file Last Filed Vital Signs Vital Sign Reading Time Taken Comments Blood Pressure 122/76 08/11/2024 2:06 PM CDT Pulse 85 08/11/2024 2:06 PM CDT Temperature 36.7 C (98 F) 08/11/2024 2:06 PM CDT Respiratory Rate 16 02/04/2024 11:12 AM CDT Oxygen Saturation 98% 08/11/2024 2:06 PM CDT Inhaled Oxygen Concentration - - Weight 80.5 kg (177 lb 8 oz) 08/11/2024 2:06 PM CDT Height 170.2 cm (5' 7 ) 08/11/2024 2:06 PM CDT Body Mass Index 27.8 08/11/2024 2:06 PM CDT Plan of Treatment Not on file Procedures Procedure Name Priority Date/Time Associated Diagnosis Comments EGFR Routine 07/26/2024 10:00 AM CDT Type 2 diabetes mellitus with hyperlipidemia (HCC) Dyslipidemia associated with type 2 diabetes mellitus (HCC) DIFFERENTIAL AUTO Routine 07/26/2024 10: 00 AM CDT Type 2 diabetes mellitus with hyperlipidemia (HCC) VITAMIN D 25 HYDROXY Routine 07/26/2024 10:00 AM CDT Vitamin D deficiency LIPID PANEL Routine 07/26/2024 10:00 AM CDT Dyslipidemia associated with type 2 diabetes mellitus (HCC) CBC WITH AUTO DIFFERENTIAL Routine 07/26/2024 10:00 AM CDT Type 2 diabetes mellitus with hyperlipidemia (HCC) COMPREHENSIVE METABOLIC PANEL Routine 07/26/2024 10:00 AM CDT Type 2 diabetes mellitus with hyperlipidemia (HCC) Dyslipidemia associated with type 2 diabetes mellitus (HCC) THYROID FUNCTION CASCADE Routine 07/26/2024 10:00 AM CDT Dyslipidemia associated with type 2 diabetes mellitus (HCC) HEMOGLOBIN A1C Routine 07/26/2024 10:00 AM CDT Type 2 diabetes mellitus with hyperlipidemia (HCC) ALBUMIN CREATININE RATIO, URINE Routine 01/20/2024 10:00 AM CDT Mixed hyperlipidemia Type 2 diabetes mellitus with hyperlipidemia (HCC) DIABETIC EYE EXAM Routine 07/13/2023 HM DIABETES FOOT EXAM Routine 08/28/2016 COLONOSCOPY IMAGES 08/16/2014 PSA, TOTAL Routine 08/18/2011 from Last 3 Months or Most Recently Relevant to Health Maintenance Results * eGFR (07/26/2024 10:00 AM CDT) eGFR 84 >=60 mL/min/1. 73 m2 Comment: Interpretive Data Reference Interval Normal >/= 90 mL/min/1.73m2 Mildly decreased* 60 - 89 mL/min/1.73m2 Mildly to moderately decreased 45 - 59 mL/min/1.73m2 Moderately to severely decreased 30 - 44 mL/min/1.73m2 Severely decreased 15 - 29 mL/min/1.73m2 Kidney Failure < 15 mL/min/1.73m2 *Relative to young adult level Estimated glomerular filtration rate is determined by the 2020 CKD-EPI equation recommended by the National Kidney Foundation (A Unifying Approach to GFR Estimation: Recommendations of the NKF-ASK Task Force on Reassessing the Inclusion of Race in Diagnosing Kidney Disease, JASN 2020). The CKD-EPI equation should not be used for patients with unstable renal function and has not been validated in children and those over 70. Current interpretive data was last reviewed 2021. Blood 07/26/2024 10:0 0 AM CDT 07/26/2024 10:31 AM CDT Chet Sorto MD LAB BLOOD ORDERABLES Fi nal Result [facility] ([place] [place] [address] * Differential, auto (07/26/2024 10:00 AM CDT) Neutrophil abs 5.6 1.5 - 6.5 K/cumm Imm gran abs 0.0 0.0 - 0.1 K/cumm [facility] ([place]) Lymphocyte abs 2.5 0.8 - 3.3 K/cumm [facility] ([place]) Monocyte abs 0.7 0.2 - 0.8 K/cumm [facility] ([place]) Eosinophil abs 0.3 0.0 - 0.5 K/cumm [facility] ([place]) Basophil abs 0.0 0.0 - 0.1 K/cumm [facility] ([place]) Neutrophil pct 60.9 % [facility] ([place]) Comment: Interpretive Data Percent cell count reference ranges are not reported, since discordance with absolute values may lead to misinterpretation of CBC data. Current Interpretive Data was last revised on 2017. Imm gran pct 0.2 % [facility] ([place]) Comment: Interpretive Data Percent cell count reference ranges are not reported, since discordance with absolute values may lead to misinterpretation of CBC data. Current Interpretive Data was last revised on 2017. Lymphocyte pct 27.3 % [facility] ([place]) Comment: Interpretive Data Percent cell count reference ranges are not reported, since discordance with absolute values may lead to misinterpretation of CBC data. Current Interpretive Data was last revised on 2017. Monocyte pct 7.6 % [facility] ([place]) Comment: Interpretive Data Percent cell count reference ranges are not reported, since discordance with absolute values may lead to misinterpretation of CBC data. Current Interpretive Data was last revised on 2017. Eosinophil pct 3.6 % [facility] ([place]) Comment: Interpretive Data Percent cell count reference ranges are not reported, since discordance with absolute values may lead to misinterpretation of CBC data. Current Interpretive Data was last revised on 2017. Basophil pct 0.4 % [facility] ([place]) Comment: Interpretive Data Percent cell count reference ranges are not reported, since discordance with absolute values may lead to misinterpretation of CBC data. Current Interpretive Data was last revised on 2017. Blood 07/26/2024 10:0 0 AM CDT 07/26/2024 10:31 AM CDT Chet Sorto MD LAB BLOOD ORDERABLES Fi nal Result Performing Organization Address City/[facility] Co de [facility] Number [facility] [place] [address] * Thyroid Function Stone (07/26/2024 10:00 AM CDT) TSH 1.82 0.30 - 4.20 mcIUnit/mL Blood 07/26/2024 10:0 0 AM CDT 07/26/2024 10:31 AM CDT Chet Sorto MD LAB BLOOD ORDERABLES Fi nal Result Performing Organization Address City/[facility]/ZIP Co de Phone Number [facility] ([place] 1 [facility] [place] [address] * (ABNORMAL) CBC with auto differential (07/26/2024 10:00 AM CDT) WBC 9.1 3.8 - 9.9 K/cumm Hgb 13.0 13.0 - 17.5 g/dL [facility] ([place]) Hct 40.7 38.9 - 50.3 % [facility] ([place]) Plt [id number]|2024-09-13 12:42:00|2024-09-13 12:42:00|XMS_ITS|BKG MARTHA|External Medical Summaries|[id number]|" Clinical Summary Created on: September 13, 2024 Jaya Galvan : 1940 Sex: Male Author Organization [facility] Address [address] [place] [id number] Care Team Providers Care Court Specialist Name Role Phone Chet Sorto MD Primary Care Provider Glenn Ya MD Unavailable [phone] Jose Ghotra MD Unavailable [phone] Allergies Active Allergy Reactions Criticality Noted Date Comments Latex Blisters High 03/21/2019 Medications multivitamin tablet tablet take 1 tablet by oral route every day with food 0 0 5 Active cinnamon bark (CINNAMON) 500 mg capsule 1 po q day 0 0 5 Active lancets (onetouch ultrasoft) misc test q day 100 5 1 Active blood glucose diagnostic (ONE TOUCH TEST) strip test q day 100 5 1 Active carboxymethylce llulose (REFRESH) 1 % ophthalmic liquid gel drops Administer 1 drop into both eyes as needed Active loperamide (IMODIUM) 2 mg capsule Take 1 capsule (2 mg total) by mouth 4 (four) times a day as needed Active cholecalciferol (VITAMIN D-3) 2000 unit tablet Take 1 tablet (2,000 Units total) by mouth daily 1 Active simvastatin (ZOCOR) 20 mg tablet TAKE 1 TABLET NIGHTLY 90 tablet 3 4 Active omega 1-llt-peb-fish oil 1,200 (144-216) mg capsule Take by mouth Active nintedanib (Ofev) 100 mg capsule Take 1 capsule (100 mg total) by mouth 2 (two) times a day Active Active Problems Problem Noted Date Diagnosed Date Preventative health care 02/04/2024 Assessment & Plan (02/04/2024 12:46 PM CDT): - New or chronic worsening conditions: T2DM, Vitamin D deficiency, left ear impacted - Mental health: no significant psychiatric/mental health conditions affecting her day to day functioning - Dental health: Recommend regular dental care and cleaning. Discussed importance of regular tooth brushing, flossing, and dental visits. - Nutrition: Recommend moderation in sodium/caffeine intake, saturated fat and cholesterol, caloric balance, sufficient intake of fresh fruits, vegetables - Exercise: Recommend to exercise at least 30 minutes moderate to vigorous exercise most days of the week. (minimum 150 minutes weekly) - Immunizations: Age and sex appropriate immunizations reviewed and offered - Prostate cancer screening: not indicated - Colon cancer screening: not indicated - Lung cancer screening: not indicated No results found for: PSA Vitamin D deficiency 10/09/2020 Assessment & Plan (08/11/2024 2:10 PM CDT): - chronic condition, better controlled/at goal - currently takes Vitamin D3 supplement 4-5000 international units daily - he was started on Vitamin D for hair loss by prior PCP - most recent labs as shown below The current medical regimen is effective; continue present plan and medications. Lab Results Component Value Date 25HYDROVITD 37 07/26/2024 25HYDROVITD 32 02/08/2024 25HYDROVITD 30 04/14/2023 25HYDROVITD 33 10/07/2021 25HYDROVITD 21 (L) 04/01/2021 Assessment & Plan (02/04/2024 11:43 AM CDT): - chronic condition, not at goal - currently takes Vitamin D3 supplement 2000 international units daily --> recommend increasing to 2753-4422 mg daily - he was started on Vitamin D for hair loss by prior PCP - most recent labs as shown below - recheck labs, order placed Lab Results Component Value Date 25HYDROVITD 30 04/14/2023 25HYDROVITD 33 10/07/2021 25HYDROVITD 21 (L) 04/01/2021 25HYDROVITD 25 (L) 09/26/2020 Assessment & Plan (06/27/2023 2:44 PM [employer]ERING): Continue vitamin-D supplementation check levels yearly Assessment & Plan (10/30/2022 2:32 PM CDT): Continue supplementation check level before next visit. Assessment & Plan (05/01/2022 5:55 PM [employer]ERING): Continue current supplementation and check level in 1 year. Assessment & Plan (10/22/2021 2:30 PM CDT): Continue current supplementation and check level in 1 year. Assessment & Plan (04/11/2021 2:06 PM D[employer]TER [employer]INEERING): Increase vitamin-D to 2000 units daily and check level before next visit. Assessment & Plan (10/09/2020 1:51 PM CDT): Start 1000 units daily and check level before next visit. Diarrhea 10/09/2020 Assessment & Plan (08/11/2024 2:09 PM CDT): - chronic condition, persistent - secondary to his Ofev medication from pulmonology - uses Imodium PRN for his diarrhea Assessment & Plan (02/04/2024 11:41 AM CDT): - chronic condition, persistent - secondary to his Ofev medication from pulmonology - uses Imodium PRN for his diarrhea Assessment & Plan (10/09/2020 1:52 PM CDT): Most likely due to his Ofev. If symptoms do not resolve with reduced dose may want to hold it to confirm our suspicions. May need colonoscopy if no improvement. Orthostasis 01/02/2020 Assessment & Plan (01/30/2020 11:07 AM CDT): Could be from dehydration or from his positioning in the garden. Recommended increasing hydration and sitting and standing slowly in the future. Call back if symptoms continue. Pulmonary embolism 07/05/2019 Overview (09/23/2019): CT reveiwed by his asphalt engineer and radiologist at [facility] who felt PE's were lymph nodes next to airways and not PE's thus anticoagulation discontinued 08/2019. Assessment & Plan (09/12/2019 8:52 PM CDT): Recommend 6 months of anticoagulation. 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 Matt - currently on Ofev 100mg BID - started on supplemental oxygen around 11/2023 2% oxygen at night for nocturnal hypoxemia - gets PFTs twice a year and gets examined twice a year as well - continue management per Pulmonology Assessment & Plan (06/27/2023 2:44 PM DRAFTER [employer]INEERING): Continue ofev and follow up with his asphalt engineer as they direct Assessment & Plan (10/30/2022 2:32 PM CDT): Continue OFEV and follow-up with asphalt engineer as they direct. Assessment & Plan (10/22/2021 2:29 PM CDT): Continue OFEV follow-up with his asphalt engineer as they direct. [facility] not [facility] qualify [facility] with FEV1 greater than 1. Assessment & Plan (04/11/2021 2:06 PM DRAFTER [employer] ENGINEERING): Continue his ofev and follow-up with asphalt engineer as they direct. Assessment & Plan (10/09/2020 1:51 PM CDT): Currently on reduced dose Ofev due to side effects of diarrhea and weight loss Assessment & Plan (03/26/2020 10:52 AM DRAFTER CIVIL ENGINEERING): Continue ofev and follow-up with his asphalt engineer as they direct. Assessment & Plan (09/23/2019 6:16 PM CDT): Follow-up with his asphalt engineer as they direct. Assessment & Plan (09/12/2019 8:52 PM CDT): Follow-up with his asphalt engineer for further evaluation. Dry mouth 03/21/2019 Overview (03/21/2019): Patient reports negative rheumatology workup. Assessment & Plan (02/04/2024 11:54 AM CDT): - chronic condition - Patient reports negative rheumatology workup per former PCP in 2019 He had been using [id number] products as needed. - states it seemed to coincide with the lung problem - states he was told it is to be expected with Ofiv - he was recommended to use mouth wash OTC - also has dry nose, and dry eyes - his eye doctor tested him and found vitamin A deficiency but there was no improvement with vitamin A supplementation Assessment & Plan (03/21/2019 10:52 AM DRAFTER CIVIL ENGINEERING): [id number] products as needed. EUN positive 03/23/2018 Overview (03/21/2019): Negative rheumatology workup per patient. Assessment & Plan (03/23/2018 9:14 AM DRAFTER CIVIL ENGINEERING): With symptoms of sicca syndrome and positive EUN panel, will have him see Dr. Lopez for further evaluation. Dry eye syndrome of bilateral lacrimal glands Type 2 diabetes mellitus with hyperlipidemia Assessment & Plan (08/11/2024 2:10 PM CDT): - chronic condition - initial diagnosis [id number] - most recent labs as shown below - not on any medications, currently managed by lifestyle - up to date with eye exam, and Urine albumin creatinine ratio - Continue current management Lab Results Component Value Date HGBA1C 6.3 (H) 07/26/2024 HGBA1C 6.6 (H) 01/20/2024 HGBA1C 6.5 05/07/2023 Lab Results Component Value Date MICROALBUR 0.5 03/03/2019 LDLCALC 86 07/26/2024 CREATININE 0.88 07/26/2024 Assessment & Plan (02/04/2024 12:09 PM CDT): - chronic condition - initial diagnosis [id number] - most recent labs as shown below - not on any medications, currently managed by lifestyle - up to date with eye exam, and Urine albumin creatinine ratio - will continue to follow up Lab Results Component Value Date HGBA1C 6.6 (H) 01/20/2024 HGBA1C 6.5 05/07/2023 HGBA1C 6.2 (H) 10/15/2022 Lab Results Component Value Date MICROALBUR 0.5 03/03/2019 LDLCALC 74 01/20/2024 CREATININE 0.77 (L) 01/20/2024 Assessment & Plan (06/27/2023 2:44 PM DRAFTER CIVIL ENGINEERING): A1c, LDL, and blood pressure currently well controlled on current regimen. Check a yearly diabetic eye exam and blood sugars daily. Monofilament testing is intact. Assessment & Plan (10/30/2022 2:32 PM CDT): A1c, LDL, and blood pressure currently well controlled on current regimen. Check a yearly diabetic eye exam and blood sugars daily. Monofilament testing is intact. Assessment & Plan (05/01/2022 5:55 PM DRAFTER CIVIL ENGINEERING): A1c, LDL, and blood pressure currently well controlled on current regimen. Check a yearly diabetic eye exam and blood sugars daily. Monofilament testing is intact. Assessment & Plan (10/22/2021 2:29 PM CDT): A1c, LDL, and blood pressure currently well controlled on current regimen. Check a yearly diabetic eye exam and blood sugars daily. Monofilament testing is intact. Assessment & Plan (04/11/2021 2:06 PM DRAFTER CIVIL ENGINEERING): A1c, LDL, and blood pressure currently well controlled on current regimen. Check a yearly diabetic eye exam and blood sugars daily. Monofilament testing is intact. Assessment & Plan (10/09/2020 1:50 PM CDT): A1c, LDL, and blood pressure currently well controlled on current regimen. Check a yearly diabetic eye exam and blood sugars daily. Monofilament testing is intact. Assessment & Plan (03/26/2020 10:51 AM DRAFTER CIVIL ENGINEERING): A1c, LDL, and blood pressure currently well controlled on current regimen. Check a yearly diabetic eye exam and blood sugars daily. Monofilament testing is intact. Assessment & Plan (09/23/2019 6:16 PM CDT): A1c, LDL, and blood pressure currently well controlled on current regimen. Check a yearly diabetic eye exam and blood sugars daily. Monofilament testing is intact. Assessment & Plan (03/21/2019 10:52 AM DRAFTER CIVIL ENGINEERING): A1c, LDL, and blood pressure currently well controlled on current regimen. Check a yearly diabetic eye exam and blood sugars daily. Monofilament testing is intact. Assessment & Plan (09/20/2018 10:09 AM CDT): A1c, LDL, and blood pressure currently well controlled on current regimen. Check a yearly diabetic eye exam and blood sugars daily. Take a daily aspirin. Monofilament testing is intact. Assessment & Plan (03/23/2018 9:13 AM DRAFTER CIVIL ENGINEERING): A1c, LDL, and blood pressure currently well controlled on current regimen. Check a yearly diabetic eye exam and blood sugars daily. Take a daily aspirin. Monofilament testing is intact. Assessment & Plan (09/10/2017 10:29 AM CDT): A1c, LDL, and blood pressure currently well controlled on current regimen. Check a yearly diabetic eye exam and blood sugars daily. Take a daily aspirin. Monofilament testing is intact. Assessment & Plan (03/19/2017 6:36 PM DRAFTER CIVIL ENGINEERING): A1c, LDL, and blood pressure currently well controlled on current regimen. Check a yearly diabetic eye exam and blood sugars daily. Take a daily aspirin. Monofilament testing is intact. Dyslipidemia associated with type 2 diabetes giancarlo litus 09/17/2013 Assessment & Plan (08/11/2024 2:14 PM CDT): - chronic condition - status: is adequately controlled. - current management/medications: Simvastatin 20 mg nightly and fish oil supplement Holbrook-3 takes 3600 mg daily - other comorbid conditions:T2DM - patient is compliant with medications. - most recent LDL as shown below - maintain a healthy weight, diet - will monitor closely The current medical regimen is effective; continue present plan and medications. Lab Results Component Value Date LDLCALC 86 07/26/2024 Lab Results Component Value Date ALT 13 07/26/2024 AST 19 07/26/2024 ALKPHOS 89 07/26/2024 BILITOT 0.4 07/26/2024 Assessment & Plan (02/04/2024 11:45 AM CDT): - chronic condition - status: is adequately controlled. - current management/medications: Simvastatin 20 mg nightly and fish oil supplement Holbrook-3 takes 3600 mg daily - other comorbid conditions:T2DM - patient is compliant with medications. - most recent LDL as shown below - maintain a healthy weight, diet - will monitor closely - continue current management Lab Results Component Value Date LDLCALC 74 01/20/2024 Lab Results Component Value Date ALT 12 01/20/2024 AST 17 01/20/2024 ALKPHOS 88 01/20/2024 BILITOT 0.4 01/20/2024 Assessment & Plan (06/27/2023 2:44 PM DRAFTER CIVIL ENGINEERING): Well controlled on current therapy and will check a lipid panel and LFTs in 6 months. Assessment & Plan (10/30/2022 2:32 PM CDT): Well controlled on current therapy and will check a lipid panel and LFTs in 6 months. Assessment & Plan (05/01/2022 5:56 PM DRAFTER CIVIL ENGINEERING): Well controlled on current therapy and will check a lipid panel and LFTs in 6 months. Assessment & Plan (10/22/2021 2:29 PM CDT): Well controlled on current therapy and will check a lipid panel and LFTs in 6 months. Assessment & Plan (04/11/2021 2:06 PM DRAFTER CIVIL ENGINEERING): Well controlled on current therapy and will check a lipid panel and LFTs in 6 months. Assessment & Plan (10/09/2020 1:51 PM CDT): Well controlled on current therapy and will check a lipid panel and LFTs in 6 months. Assessment & Plan (03/26/2020 10:51 AM DRAFTER CIVIL ENGINEERING): Well controlled on current therapy and will check a lipid panel and LFTs in 6 months. Assessment & Plan (09/23/2019 6:16 PM CDT): Well controlled on current therapy and will check a lipid panel and LFTs in 6 months. Assessment & Plan (03/21/2019 10:52 AM DRAFTER CIVIL ENGINEERING): Well controlled on current therapy and will check a lipid panel and LFTs in 6 months. Assessment & Plan (09/20/2018 10:09 AM CDT): Well controlled on current therapy and will check a lipid panel and LFTs in 6 months. Assessment & Plan (03/23/2018 9:13 AM DRAFTER CIVIL ENGINEERING): Well controlled on current therapy and will check a lipid panel and LFTs in 6 months. Assessment & Plan (09/10/2017 10:29 AM CDT): Well controlled on current therapy and will check a lipid panel and LFTs in 6 months. Assessment & Plan (03/19/2017 6:36 PM DRAFTER CIVIL ENGINEERING): Well controlled on current therapy and will check a lipid panel and LFTs in 6 months. Benign prostatic hyperplasia without urinary obs truction 09/17/2013 Overview (02/04/2024): Follows with Urology Assessment & Plan (08/11/2024 2:19 PM CDT): - Chronic condition, not at goal but improved - Nocturia 3-4 times a night but declines medications, states he can go right back to sleep - States used to be worse, S/p TURP 2-3 years ago and symptoms have got better - Not on any medication currently, he did try medications in the past Assessment & Plan (02/04/2024 11:50 AM CDT): - Chronic condition, not at goal but improved - Nocturia 2-3 times a night - States used to be worse, S/p TURP 2-3 years ago and symptoms have got better - Not on any medication currently, he did try medications in past Assessment & Plan (10/09/2020 1:51 PM CDT): Follow-up with his urologist to ensure that he is not obstructed to account for his new urinary complaints. He may need urodynamics. Continue finasteride for now. Assessment & Plan (03/26/2020 10:52 AM DRAFTER CIVIL ENGINEERING): Well controlled on finasteride. Assessment & Plan (09/23/2019 6:17 PM CDT): Continue finasteride follow-up with his urologist as they direct. Assessment & Plan (03/21/2019 10:52 AM DRAFTER CIVIL ENGINEERING): Continue finasteride and follow up with his urologist as they direct. Assessment & Plan (09/20/2018 10:10 AM CDT): Stable on his finasteride and should follow up with his urologist for PSAs as they direct. Assessment & Plan (03/23/2018 9:13 AM DRAFTER CIVIL ENGINEERING): Well controlled on finasteride and should follow up with his urologist regarding PSAs. Assessment & Plan (09/10/2017 10:29 AM CDT): Continue finasteride and PSAs are followed by his urologist. Assessment & Plan (03/19/2017 6:36 PM DRAFTER CIVIL ENGINEERING): Stable on finasteride and should follow up with his urologist as they direct. Atopic rhinitis 09/17/2013 Assessment & Plan (02/04/2024 11:41 AM CDT): - chronic condition, improved - uses to take OTC medications but not anymore Assessment & Plan (05/02/2019 5:56 PM DRAFTER CIVIL ENGINEERING): Nasal mucosa is erythematous and edematous. Instructed patient on importance of using a nasal spray such as Flonase two sprays each nostril once a day. Educated patient on ensuring during use the spray is to be inserted by the tip and point it towards the same side ear. Flonase can be purchased over the counter. Allergies can flare with the change of the weather/season or around harvest time. Patient instructed to follow up in office if symptoms worsen or persist. Assessment & Plan (03/21/2019 10:53 AM DRAFTER CIVIL ENGINEERING): Well controlled without medication. Assessment & Plan (09/20/2018 10:10 AM CDT): Well controlled without medication. Assessment & Plan (03/23/2018 9:13 AM DRAFTER CIVIL ENGINEERING): Well controlled without medication currently Assessment & Plan (09/10/2017 10:29 AM CDT): Claritin p.r.n. Assessment & Plan (03/19/2017 6:37 PM DRAFTER CIVIL ENGINEERING): Claritin as needed. Resolved Problems Problem Noted Date Diagnosed Date Resolved Date Alopecia 10/09/2020 02/04/2024 Assessment & Plan (10/09/2020 1:51 PM CDT): Possibly from his vitamin-D deficiency. Start replacement and check level before next visit. Check iron levels before next visit. Interstitial lung disease 01/17/2020 Overview (01/17/2020): Added automatically from request for surgery [id number] Chronic cough 06/22/2019 02/04/2024 Overview (06/22/2019): Cough began in March 2019. Have tried albuterol, Flonase, and patient has been treated for pneumonia due to chest X-ray in March. Assessment & Plan (06/22/2019 3:18 PM DRAFTER CIVIL ENGINEERING): Discussed importance of chest CT due to continued symptoms as well as crackles throughout lower lobes of lungs. CT with contrast ordered to R/O emphysema, malignancy, chronic bronchitis, or underlying autoimmune disorder. Patient did have a positive EUN in 2017, was seen by rheumatology and states they were unable to make a definitive diagnosis. Patient O2 sat within normal range, denies any SOB or other concerns. In the mean time we will begin Symbicort 2 puffs BID. Will notify patient once results of CT are back. Patient instructed to return to clinic or go to the emergency department with absolutely any worsening of symptoms. Class 2 obesity with body ma ss index (BMI) of 35.0 to 35.9 in adult 06/22/2019 02/04/2024 Assessment & Plan (09/12/2019 8:52 PM CDT): Patient is encouraged to lose weight with a combination of caloric reduction and increased exercise. Assessment & Plan (06/22/2019 3:18 PM DRAFTER CIVIL ENGINEERING): Benefits of weight loss discussed. Reviewed recommendations for daily intake & activity 20-30 minutes/day. Presence of intraocular lens 03/19/2017 02/04/2024 Healthcare maintenance 03/19/201708/11 Assessment & Plan (10/30/2022 2:33 PM CDT): Flu shot each February. Tetanus booster every 10 years. COVID booster when available. Pneumovax 23/Prevnar 13 completed. Deferring PSA and colonoscopy due to age. Will see him back in 6 months with lab sooner if needed. Assessment & Plan (10/22/2021 2:30 PM CDT): Flu shot each February. Tetanus booster due in January. COVID vaccine completed. Pneumovax completed. Deferring PSA and colonoscopy due to age. Will see him back in 6 months with lab sooner if needed. Assessment & Plan (10/09/2020 1:52 PM CDT): We discussed a comprehensive list of medical conditions and proposed recommendations for each. We discussed the importance of increased exercise, fall prevention, proper nutrition, and suggested joining [facility] to accomplish most of these goals. Patient was given an age appropriate Medicare preventive services checklist. Please see the EMR regarding details of their health risk assessment and preventive services checklist. Will see him back in 6 months with lab sooner if needed. Assessment & Plan (09/23/2019 6:17 PM CDT): We discussed a comprehensive list of medical conditions and proposed recommendations for each. We discussed the importance of increased exercise, fall prevention, proper nutrition, and suggested joining [facility] to accomplish most of these goals. Patient was given an age appropriate Medicare preventive services checklist. Please see the EMR regarding details of their health risk assessment and preventive services checklist. Will see him back in 6 months with lab sooner if needed. Assessment & Plan (03/23/2018 9:14 AM DRAFTER CIVIL ENGINEERING): We discussed a comprehensive list of medical conditions and proposed recommendations for each. We discussed the importance of increased exercise, fall prevention, proper nutrition, and suggested joining [facility] to accomplish most of these goals. Patient was given an age appropriate Medicare preventive services checklist. Please see the EMR regarding details of their health risk assessment and preventive services checklist. Will see him back in 6 months with fasting lab sooner if needed. Assessment & Plan (03/19/2017 6:37 PM DRAFTER CIVIL ENGINEERING): We discussed a comprehensive list of medical conditions and proposed recommendations for each. We discussed the importance of increased exercise, fall prevention, proper nutrition, and suggested joining [facility] to accomplish most of these goals. Patient was given an age appropriate Medicare preventive services checklist. Please see the EMR regarding details of their health risk assessment and preventive services checklist. Will see him back in 6 months with fasting lab sooner if needed At low risk for fall 03/19/2017 022 Assessment & Plan (10/09/2020 1:52 PM CDT): Timed get up and go test normal. Assessment & Plan (09/23/2019 6:17 PM CDT): Timed get up and go test normal. Assessment & Plan (03/23/2018 9:14 AM DRAFTER CIVIL ENGINEERING): Timed get up and go test normal. Assessment & Plan (03/19/2017 6:37 PM DRAFTER CIVIL ENGINEERING): Timed get up and go test normal. Constipation 03/19/2017 02/04/2024 Assessment & Plan (03/19/2017 6:37 PM DRAFTER CIVIL ENGINEERING): Add Metamucil and MiraLax. If no improvement would recommend moving up his colonoscopy given his family history of colon cancer. Encounters Date Type Department Care Team Description 08/11/2024 2:15 PM CDT Office Visit [facility] Primary Care at [address] [phone] Chet Sorto MD Dyslipidemia associated with type 2 diabetes mellitus (HCC) (Primary Dx); Benign prostatic hyperplasia without urinary obstruction; Type 2 diabetes mellitus with hyperlipidemia (HCC); ILD (interstitial lung disease) (HCC); Diarrhea, unspecified type; Vitamin D deficiency; Actinic keratosis 08/09/[address] [facility] Primary Care at [address] [phone] Chet Sorto MD Appointment 07/28/2024 Results Follow-Up [facility] Primary Care at [address] [phone] Chet Sorto MD 07/26/2024 9:50 AM CDT Lab [address] [phone] Type 2 diabetes mellitus with hyperlipidemia (HCC); Dyslipidemia associated with type 2 diabetes mellitus (HCC); Vitamin D deficiency 07/25/2024 Telephone [facility] Primary Care at [address] [phone] Chet Sorto MD Additional Services Or Orders from Last 3 Months Immunizations Immunization Administration Dates Next Due Influenza, Quad, Adjuvantate d, Intramuscular 02/05/2023,02/18/2022 Influenza, Quadrivalent, Hig h Dose, Preservative Free, Intrr 02/13/2021,02/03/2020 Influenza, Split 02/15/2010 Influenza, Trivalent, Adjuva nted, Intramuscular 02/24/2024 Influenza, Trivalent, High D ose, Split, Preservative Free, Intramuscular 02/20/2019,03/19/2017,02/28/2016,01/25 Influenza, Trivalent, IM (MDV) 3,02/26/2012,02/01/2011,01/26,01/26/2008 Influenza, Unspecified 08/11/2024(Deferr ed: Patient Refused),05/04/2023(Deferred: Patient Refused),01/02/2020(Deferred: Patient Refused),01/03/2019,02/03/2018 Moderna SARS-CoV-2 Monovalen t Vaccination (12+ YRS) 06/29/2020,06/01/2020 Pneumococcal Conjugate PCV 13 01/25/2015 Pneumococcal Polysaccharide PPV23 11/15/2010 RSV Vaccine, Pref, Recombina nt, Subunit, Adjuvanted, PF, IM (Arexvy) 02/05/2023 Td, adsorbed 07/14/2001 Tdap 03/25/2022,01/15/2012 ZOSTER LIVE 05/05/2006 ZOSTER Recombinant 06/24/2019,03/23/2019 Surgical History Surgery Date Site/Laterality Comments CATARACT EXTRACTION, BILATERAL TONSILLECTOMY/ADENOIDECTOMY SKIN TAG REMOVAL COLONOSCOPY LUNG SURGERY 02/02/2020 - 03/03/2020 VATS with wedge bx TRANSURETHRAL RESECTION OF PROSTATE 03/04/2021 - 04/02/2021 Medical History Medical History Date Comments Benign prostatic hyperplasia Manjinder ign prostatic hypertrophy Herpes zoster Herpes Zoster Macular degeneration Cataract Pulmonary fibrosis (HCC) Interstitial lung disease (HCC) Prediabetes Type 2 diabetes mellitus (HCC) Hyperlipidemia Family History Medical History Relation Name Comments Liver cancer Brother 1 Guero Cancer, liver; Cause of : Cancer, liver Diabetes Brother 2 Diabetes mellit us; Hypertension Brother 3 Hypertension; Diabetes Brother 4 Diabetes mellit us; Heart disease Brother 5 Heart disease; Hypertension Brother 6 Hypertension; Diabetes type II Brother 7 Eleazar Diabetes me llitus type 2; Prostate cancer Brother 7 Eleazar Cancer, pros martínez; Colon cancer Father Cancer -colon; Depression Father Depression; Diabetes Father Diabetes mellit us; Heart disease Father Heart disease; Hypertension Father Hypertension; Breast cancer Mother Cancer -breast ; Diabetes Mother Diabetes mellit us; Heart disease Mother Heart disease; Hypertension Mother Hypertension; Stroke Mother Stroke; Relation Name Status Comments Brother 1 Guero Brother 2 Brother 3 Brother 4 Brother 5 Brother 6 Brother 7 Eleazar Father Alive Mother Social History Tobacco Use Types Packs/Day Years Used Date Smoking Tobacco: Never Smokeless Tobacco: Never Tobacco Cessation:Counseling Given: Yes Alcohol Use Standard Drinks/Week Comments No 0 [...] points, staff should administer the PHQ-9) 0 08/11/2024 Sex and Gender Information Value Date Recorded Sex Assigned at Not on file Legal Sex Male 12:42 AM DRAFTER CIVIL ENGINEERING Gender Identity Not on file Sexual Orientation Not on file Obstetrics History Last Filed Vital Signs Vital Sign Reading Time Taken Comments Blood Pressure 122/76 08/11/2024 2:06 PM CDT Pulse 85 08/11/2024 2:06 PM CDT Temperature 36.7 C (98 F) 08/11/2024 2:06 PM CDT Respiratory Rate 16 02/04/2024 11:12 AM CDT Oxygen Saturation 98% 08/11/2024 2:06 PM CDT Inhaled Oxygen Concentration - - Weight 80.5 kg (177 lb 8 oz) 08/11/2024 2:06 PM CDT Height 170.2 cm (5' 7 ) 08/11/2024 2:06 PM CDT Body Mass Index 27.8 08/11/2024 2:06 PM CDT Plan of Treatment Health Maintenance Due Date Last Done Comments Prostate Cancer Screening-PSA 08/17/2012 08/18/2011 Colon Cancer Screening-Colonoscopy 08/17/2019 08/16/2014, 08/16/2014, 08/16/2014 Foot Exam 10/31/2023 10/30/2022, 04/04, 10/09/2020, Additional history exists Covid-19 Vaccine (2023-06 5 season) 2024 02/12/2024, 10/23/2023, 01/21/2023, Additional history exists Albumin Creatinine Ratio, Urine 01/19/2025 01/20/2024, 04/14/2023, 10/15/2022, Additional history exists Hemoglobin A1C 01/26/2025 07/26/2024, 01/02, 05/07/2023, Additional history exists Well Visit 65+ 02/03/2025 02/04/2024, 10/03, 10/22/2021, Additional history exists Dilated Eye Exam 07/12/2025 07/13/2023, 02/2023, 07/09/2021, Additional history exists Lipid Panel 07/26/2025 07/26/2024, 01/02, 04/14/2023, Additional history exists eGFR 07/26/2025 07/26/2024, 01/02, 04/14/2023, Additional history exists Depression Screening 08/11/2025 08/11/2024, 02/04/2024, 05/07/2023, Additional history exists Fall Risk Assessment 08/11/2025 08/11/2024, 02/04/2024, 05/07/2023, Additional history exists DTaP/Tdap/Td Vaccine (3 - Td or Tdap) 03/25/2032 03/25/2022, 01/15/2012, 07/14/2001 Colon Cancer Screening-CT Colonography Discontinued 08/16/2014, 08/16/2014, 08/16/2014 Colon Cancer Screening-DNA Stool Discontinued 08/16/2014, 08/16/2014, 08/16/2014 Colon Cancer Screening-FIT Discontinued 08/16, 08/16/2014, 08/16/2014 Colon Cancer Screening-Sigmoidoscopy Discontinued 08/16/2014, 08/16/2014, 08/16/2014 Pneumococcal vaccine 65+ Completed 01/25/2015, 11/01 Zoster Vaccine Completed 06/24/2019, 03/05, 05/05/2006 Hepatitis B Screening Completed 02/08/2024 Influenza Vaccine Completed 02/24/2024, , 02/18/2022, Additional history exists Procedures Procedure Name Priority Date/Time Associated Diagnosis Comments EGFR Routine 07/26/2024 10:00 AM CDT Type 2 diabetes mellitus with hyperlipidemia (HCC) Dyslipidemia associated with type 2 diabetes mellitus (HCC) DIFFERENTIAL AUTO Routine 07/26/2024 10: 00 AM CDT Type 2 diabetes mellitus with hyperlipidemia (HCC) VITAMIN D 25 HYDROXY Routine 07/26/2024 10:00 AM CDT Vitamin D deficiency LIPID PANEL Routine 07/26/2024 10:00 AM CDT Dyslipidemia associated with type 2 diabetes mellitus (HCC) CBC WITH AUTO DIFFERENTIAL Routine 07/26/2024 10:00 AM CDT Type 2 diabetes mellitus with hyperlipidemia (HCC) COMPREHENSIVE METABOLIC PANEL Routine 07/26/2024 10:00 AM CDT Type 2 diabetes mellitus with hyperlipidemia (HCC) Dyslipidemia associated with type 2 diabetes mellitus (HCC) THYROID FUNCTION CASCADE Routine 07/26/2024 10:00 AM CDT Dyslipidemia associated with type 2 diabetes mellitus (HCC) HEMOGLOBIN A1C Routine 07/26/2024 10:00 AM CDT Type 2 diabetes mellitus with hyperlipidemia (HCC) ALBUMIN CREATININE RATIO, URINE Routine 01/20/2024 10:00 AM CDT Mixed hyperlipidemia Type 2 diabetes mellitus with hyperlipidemia (HCC) DIABETIC EYE EXAM Routine 07/13/2023 HM DIABETES FOOT EXAM Routine 08/28/2016 COLONOSCOPY IMAGES 08/16/2014 PSA, TOTAL Routine 08/18/2011 from Last 3 Months or Most Recently Relevant to Health Maintenance Results * eGFR (07/26/2024 10:00 AM CDT) eGFR 84 >=60 mL/min/1. 73 m2 Comment: Interpretive Data Reference Interval Normal >/= 90 mL/min/1.73m2 Mildly decreased* 60 - 89 mL/min/1.73m2 Mildly to moderately decreased 45 - 59 mL/min/1.73m2 Moderately to severely decreased 30 - 44 mL/min/1.73m2 Severely decreased 15 - 29 mL/min/1.73m2 Kidney Failure < 15 mL/min/1.73m2 *Relative to young adult level Estimated glomerular filtration rate is determined by the 2020 CKD-EPI equation recommended by the National Kidney Foundation (A Unifying Approach to GFR Estimation: Recommendations of the NKF-ASK Task Force on Reassessing the Inclusion of Race in Diagnosing Kidney Disease, JASN 2020). The CKD-EPI equation should not be used for patients with unstable renal function and has not been validated in children and those over 70. Current interpretive data was last reviewed 2021. Blood 07/26/2024 10:0 0 AM CDT 07/26/2024 10:31 AM CDT us
--- OUTSIDE RECORDS SUMMARY | 2024-09-13 12:42 | XMS_ITS | Clinical Summary ---
Author Organization [facility] [employer] Address [facility] [facility] [place] [address] Care Team Providers Care Hr Systems Analyst Name Role Phone Unavailable Primary Care Provider Unavailabl e Source Comments [facility] [employer],non-owned Affiliates and Associated Physician Practices is amultiple site organization consisting of ambulatory clinics and hospital sitesin [place], [place], [place] and [place]. This disclosure is being madepursuant to the Care Everywhere program and may not contain all information available regarding this patient. 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 Gender Identity Not on file Sexual Orientation Not on file Plan of Treatment Health Maintenance Due Date Last Done Comments DTAP/TDAP/TD VACCINES (1 - Tdap) 1958 PNEUMOCOCCAL VACCINE 50+ (1 of 1 - PCV) 1989 ZOSTER VACCINE (1 of 2) 1989 Respiratory Syncytial Virus (RSV) Vaccine Pt: or over 60 yrs (1 - 1-dose 75+ series) 2014 COVID-19 VACCINE ( - 2023-2 5 season) 2024 DEPRESSION SCREENING 05/04/2024 INFLUENZA VACCINE (Season Ended) 2025 HEPATITIS B VACCINE Aged Out No longe r eligible based on patient's age to complete this topic HIB VACCINE Aged Out No longer eligi ble based on patient's age to complete this topic HPV VACCINE Aged Out No longer eligi ble based on patient's age to complete this topic MENINGOCOCCAL (Group B) VACC INE SHARED DECISION-MAKING Aged Out No longer eligibl e based on patient's age to complete this topic MENINGOCOCCAL GROUPS A/C/Y/W VACCINE Aged Out No longer eligible b ased on patient's age to complete this topic Insurance MANAGED MEDICARE ADV MANAGED MEDICARE ADV
[2024-09-13 13:39] LABS: Alanine Aminotransferase 18 U/L (6-50); Albumin Level 4.2 g/dL (3.5-5.1); Alkaline Phosphatase 85 U/L (38-126); Anion Gap 5 mmol/L (4-12); Aspartate Amino Transferase 29 U/L (17-59); Bilirubin,Total 0.5 mg/dL (0.2-1.3); Blood Urea Nitrogen 18 mg/dL (9-20); Calcium 9.3 mg/dL (8.4-10.2); Carbon Dioxide 31 mmol/L (22-30); Chloride 102 mmol/L (98-107); Estimated Glomerular Filt Rate > 60; Glucose 111 mg/dL (65-110); Potassium 4.5 mmol/L (3.4-5.0); Sodium 138 mmol/L (137-145)
== END 2024-09-13 12:40 | disposition home or self-care (01) ==
PROVIDERS: PCP Family Medicine; Visit Provider Internal Medicine Pulmonary Disease
DX: J84.9 Interstitial pulmonary disease, unspecified (principal)
CPT/HCPCS: 36415; 80053

== ENCOUNTER 2024-10-12 14:30 | Outpatient (CLI) | payer MEDICARE, SELFPAY ==
[2024-10-12 15:45] LABS: Alveolar/Arterial O2 Gradient 28.8 mmHg; Base Excess ABG 1.5 mEq/l (+/-2.0); Fractional Inspired Oxygen 21 %; HCO3 ABG 25.9 mEq/l (22.0-26.0); Methemoglobin ABG 0.3 %THb (0-1.5); Oxygen Content ABG 18.6 %vol (16.0-22.0); Oxyhemoglobin 93.7 % THb (90.0-100.0); PCO2 ABG 40.3 mmHg (35.0-45.0); PO2 ABG 72.7 mmHg (80.0-100.0); PO2 FiO2 Ratio Arterial Blood 3.46 %; Total Hemoglobin 14.1 g/dL (12.0-18.0); pH ABG 7.426 (7.350-7.450)
[2024-10-12 15:49] LABS: Device ROOM AIR; Modified Allen's Test Pass; Site Drawn RIGHT RADIAL
--- OUTSIDE RECORDS SUMMARY | 2024-10-12 17:18 | XMS_ITS | Encounter Summary ---
Author Organization [facility] Address [address] [place] [address] Care Team Providers Care Shot Dropper Name Role Phone Cecilio Almazan MD Primary Care Provider [phone] Cecilio Almazan MD Primary Care Provider [phone] Chet Sorto MD Primary Care Provider Glenn Ya MD Unavailable [phone] Jose Ghotra MD Unavailable [phone] Chet Sorto MD Primary Care Provider Encounter Details Date Type Department Care Team (Late st Contact Info) Description 08/18/2011 Orders Only [facility] [address] [place] [address] Scanning, Provider Social History Tobacco Use Types Packs/Day Years Used Date Smoking Tobacco: Never Assessed Sex and Gender Information Value Date Recorded Sex Assigned at Not on file 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 Gender Identity Not on file Sexual Orientation Not on file documented as of this encounter Plan of Treatment Not on file documented as of this encounter Procedures Procedure Name Priority Date/Time Associated Diagnosis Comments SCAN - LABS 08/18/2011 documented in this encounter Results * SCAN - LABS (08/18/2011) Provider Scanning Final Result documented in this encounter Visit Diagnoses Not on filedocumented in this encounter Care Teams Shot Dropper Relationship Specialty Start Date End Date Cecilio Almazan MD PCP - General 07/20/14 02/03/24 Cecilio Almazan MD PCP - General 01/13/08 07/19/14 Chet Sorto MD PCP - General Family Medicine 02/04/24 10/11/24 Chet Sorto MD [address] [place], [place] [id number] PCP - General Family Medicine 10/12/24 Glenn Ya MD [address] [place] [address] Consulting Physician Urology 02/04/24 Jose Ghotra MD [address] [place] [address] Referring Physician Critical Care Med 02/04/24 documented as of this encounter
--- OUTSIDE RECORDS SUMMARY | 2024-10-12 17:18 | XMS_ITS | CONTINUITY OF CARE DOCUMENT ---
Author Name mallory tejada Address Unknown Organization [facility] Address [address] [place] [address] Phone [phone] Care Team Providers Care Show Host Or Hostess Name Role Phone mallory tejada Unavailable Unavailable
--- OUTSIDE RECORDS SUMMARY | 2024-10-12 17:18 | XMS_ITS | Clinical Summary ---
Author Organization [facility] Address [facility] [facility] [place] [address] Care Team Providers Care Reactor Operator Name Role Phone Unavailable Primary Care Provider Unavailabl e Source Comments [facility],non-owned Affiliates and Associated Physician Practices is amultiple site organization consisting of ambulatory clinics and hospital sitesin [place], [place], [place] and [place]. This disclosure is being madepursuant to the Care Everywhere program and may not contain all information available regarding this patient. 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
--- OUTSIDE RECORDS SUMMARY | 2024-10-12 17:19 | XMS_ITS | Continuity of Care Document ---
Author Organization [facility] Address [address] [facility] [address] [place] [address] Phone Care Team Providers Care Wrong Address Clerk Name Role Phone Aye OD, Lacy Unavailable Unavailable Allergies, Adverse Reactions, Alerts Substance Reaction Status Criticality latex Active No Information Medications Medication Instructions Dosage Effective Dates (start - stop) Status Comments Miebo 100 % eye drops instill 1 drop by ophthalmic route 4 times every day into affected eye(s) 1.00 drop - Active Systane Complete 0.6 % eye drops instill 1 drop by ophthalmic route as needed - Active Refresh Liquigel 1 % eye liquid gel drops One drop both eyes before bed daily - Active CENTRUM SILVER (unknown strength) take one tablet daily Not Available - Active Ofev 100 mg capsule take 1 capsule by oral route 2 times every day 100 MG - Active Imodium A-D 2 mg tablet take 2 tablet by oral route after 1st loose stool and 1 tablet (2 mg) after each next bowel movement; do not exceed 16 mg in 24hrs 4 MG - Active Vitamin D3 10 mcg (400 unit) tablet - Active Fish Oil 1,200 mg (144 mg-216 mg) capsule take 1 capsule by oral route every 3 days 1 capsule - Active simvastatin 20 mg tablet take one tablet daily - Active Refresh Tears 0.5 % eye drops take one tablet daily - Active PreserVision AREDS 14,320 unit-226 mg-200 unit capsule take one tablet daily - Active finasteride 5 mg tablet take one tablet daily - Active Cinnamon 500 mg capsule take one tablet daily - Active aspirin 81 mg tablet,delayed release take one tablet daily - Active Tylenol 325 mg tablet take 2 tablet by oral route every 6 hours as needed 650 MG - Active Procedures Procedure Date Office/outpatient Visit, [...] Providers Copied on Encounter Office/outpa tient Visit, [facility], [address], [place], [place], [address], tel:[phone] SEC Mike NOEL Professional Dry eye evaluation (chief complaint) Dry eye syndrome of bilateral lacrimal glands 4 Aye OD Lacy. [address], [address], [place], [place], [address], [place]. tel:[phone] Referring Provider: Eric Herman M, [address] [facility] [address], [place], [address] . tel:[phone] Office/outpa tient Visit, [facility] [place], [address], [place], [place], [address], [place] tel:[phone] SEC Mike NOEL Professional Glaucoma evaluation (chief complaint) Bilateral ocular hypertensionD ry eye syndrome of bilateral lacrimal glands 2-202 4 Aye OD Lacy. [address], [address], [place], [place], [address], [place]. tel:[phone] Referring Provider: Lacy Griffiths [place], [address], [place], [address] . tel:[phone] [facility], [address] [place] [address] [address], [place], [place], [address], tel:[phone] SEC [place] Professional diabetic eye exam (chief complaint) RPE mottling of maculaType 2 diabetes mellitus without complication, without long-term current use of insulinMacula r scar, rightDry eye syndrome of bilateral lacrimal glandsBilater al ocular hypertension Jul-1 - 4 Aye OD Lacy. [address] [place] [address] [address], [address], [place], [place], [address], [place]. tel:[phone] Referring Provider: Lacy Lan, [address] [place] [address] [address], [place], [address] . tel:[phone] formerly [facility], [address] [place] [address] [address], [place], [place], [address], [place] tel:[phone] SEC Mike [place] Professional Diabetic eye exam (chief complaint) Type 2 diabetes mellitus without complications Macular scar, rightDry eye syndrome of bilateral lacrimal glands Jul-1 3 Virgil Reyes. [address], [facility] [address], [place], [place], [address], [place]. tel:[phone] Referring Provider: Eric Dumas, [address], [place], [address] . tel:[phone] [facility], [address] [place] [address] [address], [place], [place], [address], [place] tel:[phone] SEC [place] Professional Complete Exam (chief complaint) Type 2 diabetes mellitus without complications Presence of intraocular lensPVD (posterior vitreous detachment), right eyeMacular scar, rightDry eye syndrome, left Mar-0 2 Virgil Reyes. [address], [address], [place], [place], [address], [place]. tel:[phone] Referring Provider: Eric Dumas [address] [facility] [address], [place], [address] . tel:[phone] [facility]pa tient [facility], [facility], [address], [place], [place], [address], [place] tel:[phone] SEC Prescott SADIE Professional Diabetic eye exam (chief complaint) Type 2 diabetes mellitus without complication, without long-term current use of insulinPresen ce of intraocular lensRPE mottling of macula 1 Grecia Avalos. [address], [address], [place], [place], [address], [place]. tel:[phone] Referring Provider: Robbie Brantley, [facility] [address], [place], [address] . tel:[phone] formerly [facility], [address], [place], [place], [address], [place] tel:[phone] SEC Mike SADIE Professional Complete Exam (chief complaint) Presence of intraocular lensDry eyesPeripapil rom atrophy of both eyesRPE mottling of maculaType 2 diabetes mellitus without complications Vitreous degeneration, bilateral 0 Brooks OD Flynn. [address] [place] [address], [address] [place] [address], [place], [address], [place]. tel:[phone] Referring Provider: Flynn Guy OD R, [address] [place] [address], [place], [address]. tel:[phone] [facility], [address], [place], [place], [address], [place] tel:[phone] SEC Mike SADIE Professional No Information 0 Brooks OD Flynn. [address] [place] [address], [address] [place] [address], [place], [address], [place]. tel:[phone] [facility], [facility] [address], [place], [place], [address], [place] tel:[phone] SEC [place] Professional Complete Exam (chief complaint) Presence of intraocular lensType 2 diabetes mellitus without complication, without long-term current use of insulinDystro phies primarily involving the retinal pigment epitheliumDry eye Mar- 8 Brooks EDE Flynn. [address] [facility], 6th [address], [place], [address], [place]. [phone] Referring Provider: Cora Cheney, [address] [place], [address]. tel:[phone] formerly [facility], [address], [place], [place], [address], [place] tel:[phone] SEC Mike NOEL Professional Complete Exam (chief complaint) Dry eye syndrome of bilateral lacrimal glandsPresenc e of intraocular lensType 2 diabetes mellitus without complications RPE mottling of macula Oct-2 7 Shravan Shepherd. [address] [place], [address], [place]. tel:[phone] Referring Provider: Cora Cheney, [address] [place], [address]. tel:[phone] formerly [facility], [address], [place], [place], [address], [place] [phone] SEC Mike NOEL Professional diabetic eye exam (chief complaint) Type 2 diabetes mellitus without complications Presence of intraocular lensRPE mottling of macula Oct-1 6 Zev Gallo. [address] [facility] [place], [address], [place]. tel:[phone] Referring Provider: Sabino Brantley, [address] [facility] [address], [place], [address] . tel:[phone] formerly [facility], [address], [place], [place], [address], [place] tel:[phone] SEC Mike NOEL Professional Tearing and burning (chief complaint) No Information Rafa-1 5-201 5 Wankrahul Gallo. [address] [facility], [address], [place], [place], [address], [place]. tel:[phone] Referring Provider: Sabino Brantley, [address], [place], [address] . tel:[phone] formerly [facility], [address], [place], [place], [address], [place] tel:[phone] SEC Mike NOEL Professional No Information 1-201 4 Wankum Sabino. [address] [facility], [address], [place], [place], [address], [place]. tel:[phone] Referring Provider: Sabino Brantley, [address] [facility] [address], [place], [address] . tel:[phone] Office/outpa tient Visit, [facility], [address], [place], [place], [address], [place] tel:[phone] SEC Prescott SADIE Professional No Information 4-201 4 Wankrahul Sabino. [address] [facility], [address] [place], [place], [address], [place]. tel:[phone] Referring Provider: Sabino Brantley, [address] [facility] [address], [place], [address] . tel:[phone] formerly [facility], [address], [place], [place], [address], [place] tel:[phone] SEC Prescott SADIE Professional No Information Aug-0 2-201 4 Wankum Sabino. [address], [address] [place], [address], [place]. tel:[phone] Referring Provider: Sabino Brantley, [address] [facility] [address], [place], [address] . tel:[phone] [facility], [address], [place], [place], [address], [place] tel:[phone] SEC Prescott SADIE Professional No Information Aug-0 3 Wanmark Gallo. [address] [facility], [address], [place], [place], [address], . tel:[phone] Referring Provider: Sabino Brantley, [address], [place], [address] . tel:[phone] [facility], [address], [place], [place], [address], tel:[phone] SEC Mike NOEL Professional No Information 2 Wanmark Gallo. [address] [facility], [address] [place], [address], [place]. tel:[phone] Referring Provider: Sabino Brantley, [address], [place], [address] . tel:[phone] [facility], [address], [place], [place], [address], [place] tel:[phone] SEC Prescott SADIE Professional No Information 1 No Information Referring Provider: Sabino Brantley, [address], [place], [address] . tel:[phone] [facility], [address], [place], [place], [address], [place] tel:[phone] SEC Mike SADIE Professional No Information 1 No Information Referring Provider: Sabino Brantley, [address], [place], [address] . tel:[phone] [facility], [address], [place], [place], [address], [place] tel:[phone] SEC Mike SADIE Professional No Information Oct- 1 No Information Referring Provider: Sabino Brantley, [address] [facility] [address], [place], [address] . tel:[phone] [facility], [address], [place], [place], [address], [place] tel:[phone] SEC Mike [place] Professional No Information Jan-1 1 No Information Referring Provider: Sabino Brantley, [address], [place], [address] . tel:[phone] [facility], [address], [place], [place], [address], [place] tel:[phone] SEC [place] Professional No Information Sep-0 1 No Information Referring Provider: Sabino Brantley, [address], [place], [address] . tel:[phone] [facility], [address], [place], [place], [address], [place] tel:[phone] [facility] No Information Sep-0 1 Grecia Avalos. [address], [address], [place], [place], [address], [place]. tel:[phone] Referring Provider: Sabino Brantley, [address], [place], [address] . tel:[phone] [facility], [address], [place], [place], [address], [place] tel:[phone] SEC Ambrosio Phillip No Information Sep-0 1 Grecia Avalos. [address], [address], [place], [place], [address], . tel:[phone] Referring Provider: Sabino Brantley, [address] [facility] [address], [place], [address] . tel:[phone] [facility], [address], [place], [place], [address], [place] tel:[phone] SEC [employer] Professional No Information Rafa- 1 Grecia Avalos. [address], [address], [place], [place], [address], [place]. tel:[phone] Referring Provider: Sabino Brantley, [address] [facility] [address], [place], [address] . tel:[phone] [facility], [address], [place], [place], [address], tel:[phone] SEC [employer] Professional No Information September- 1 Wanmark Gallo. [address] [facility], [address] [place], [address], . tel:[phone] Referring Provider: Sabino Brantley, [address] [facility] [address], [place], [address] . tel:[phone] [facility], [address], [place], [place], [address], [place] tel:[phone] SEC [employer] Professional No Information 1 Wankrahul Sabino. [address] [facility], [address], [address], . tel:[phone] Referring Provider: Sabino Brantley, [address] [facility], [place], [address] . tel:[phone] [facility], [address], [place], [place], [address], [place] tel:[phone] SEC Mike SADIE Professional No Information Mar-3 0-201 1 Randirahul Gallo. [address] [facility], [address], [place], [place], [address], [place]. tel:[phone] Referring Provider: Sabino Alexissandyrahul Fercho, [address] [facility] [address], [place], [address] . tel:[phone] [facility], [address], [place], [place], [address], [place] tel:[phone] [facility] No Information Mar-2 9 1 Grecia Robbie. [address], [address], [place], [place], [address], [place]. tel:[phone] Referring Provider: Sabino Brantley, [address] [facility] [address], [place], [address] . tel:[phone] [facility], [address], [place], [place], [address], [place] tel:[phone] SEC Ambrosio Phillip No Information Mar-2 8 1 Stewardson Robbie. [address], [address], [place], [place], [address], [place]. tel:[phone] Referring Provider: Sabino Brantley, [address], [place], [address] . tel:[phone] [facility], [address], [place], [place], [address], [place] tel:[phone] SEC [place] N Marjan No Information Mar-1 7 1 Stewardson Robbie. [address], [address], [place], [place], [address], [place]. tel:[phone] Referring Provider: Sabino Espinozakum A, [address] [facility] [address], [place], [address] . tel:[phone] Office/outpa tient Visit, [facility], [address], [place], [place], [address], tel:[phone] SEC Prescott SADIE Professional No Information Mar-0 8-201 1 Grecia Avalos. [address] [place] [address], [address], [place], [place], [address], [place]. tel:[phone] Referring Provider: Sabino Brantley, [address] [facility] [address], [place], [address] . tel:[phone] [facility], [address], [place], [place], [address], [place] tel:[phone] SEC Mike [place] Professional No Information Feb-1 4-201 1 Zev Gallo. [address] [facility], [facility] [address], [place], [place], [address], [place]. tel: [facility], [address], [place], [place], [address], [place] tel:[phone] SEC Prescott SADIE Professional No Information Feb-0 4-201 0 Wanmark Gallo. [address] [facility], [facility] [address], [place], [place], [address], [place]. tel: [facility], [address], [place], [place], [address], [place] tel:[phone] SEC [place] Professional No Information Feb-0 3-200 9 Wanmark Gallo. [address] [facility], [facility] [address], [place], [place], [address], [place]. tel:[phone] [facility], [address], [place], [place], [address], [place] [phone] SEC Prescott SADIE Professional No Information 0 8 Zev Gallo. [address], [address], [place], [place], [address], [place]. tel:[phone] Office/outpa tient Visit, [facility], [address], [place], [place], [address], tel:[phone] [facility] No Information 7 Zev Gallo. [address], [address], [place], [place], [address], [place]. [phone] Family History Family Member Type Diagnosis Age At Onset Grandfather (p) Problem (finding) Diabetes mellitus Brother Problem (finding) diabetes melli tus in first degree relative Father Problem (finding) diabetes melli tus in first degree relative Mother Problem (finding) diabetes melli tus in first degree relative Payers Payer name Insurance type Covered constitution party ID Authoriza tion(s) [employer] Mdcr Gold Adv Prime CI [id number] Social History Type Description Quantity Date Captured [...] PCP, pt reports BS was 107 before [place] and A1C was 6.7 in April. Pt [...] Impression/Plan Impression/Plan Impression/Plan Impression/Plan Impression/Plan Impression/Plan Impression/Plan Presence of intraocu lar lens - Educational material provided Related to Presence of intraocular lens Impression/Plan - Co ndition appears stable OU. Continue AREDS 2 formula, will monitor. Related to RPE mottling of macula Impression/Plan - Di abetes type II: no background retinopathy, no signs of neovascularization noted. Discussed ocular and systemic benefits of blood sugar control. DM letter sent to Dr Almazan. Return to clinic in 1 year for DM exam or sooner with problems. Related to Type 2 diabetes mellitus without complications Impression/Plan - IO L's in good position, open pc OU. Vision is good and IOP is stable. Related to Presence of intraocular lens Impression/Plan - Guicho paolo understands he has significant dry eyes. Recommend Gel tears QID OU, sample given. Related to Dry eye syndrome of bilateral lacrimal glands Impression/Plan - Ness scussed diagnosis in detail with patient. Diabetes type II: no background retinopathy, no signs of neovascularization noted. Discussed ocular and systemic benefits of blood sugar control. DM letter sent to Dr Almaazn. IOL's in good position; open pc. No change RPE OU. Return to clinic in 1 year for complete diabetic exam or sooner with any problems. Follow up - Return i n 1 year with Sabino Brothers M.D. for Complete Exam. Type 2 diabetes devon itus without complications - Educational material given Related to Type 2 diabetes mellitus without complications - Return in 1 year w denis [...] today. Related to See impression: general plan clouded pc od-had ya g os - Educational materials provided to patient. Related to AFTR-CATAR OBSCUR VISION - 1yr Related to Diabe tic oculopathy associated w/ type 2 diabetes no radio machinist - Educational materials provided to patient. 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 - yag pc od Related to AFTR- CATAR OBSCUR VISION no radio machinist - DM letter pseudo ou with capsu lotomy os nad pc haze od - pt will call if thinks needs yag pc od FOLLOW-UP SURGERY NO S, OS - established, stable - vision improved - will continue to monitor1 month sp yag cap osretina flat without signs of traction or detachment - reassured patient and discussed rd signs/symptoms---pt to report any worsening flashes, floaters, curtaining over vision Related to FOLLOW-UP SURGERY NOS - 3 months or sooner prn Related to FOLLOW-UP SURGERY NOS - 1 [...] Related to FOLLOW-UP SURGERY NOS - 1 mos Related to FOLLO W-UP SURGERY NOS - 1 Month Related to Opaci fied Capsule FOLLOW-UP SURGERY [...]
--- OUTSIDE RECORDS SUMMARY | 2024-10-12 17:19 | XMS_ITS | Encounter Summary ---
Author Organization [facility] Address [address] [place] [address] Phone Care Team Providers Care Key Filer Name Role Phone Cecilio Almazan MD Primary Care Provider [phone] Chet Sorto MD Primary Care Provider Glenn Ya MD Unavailable [phone] Jose Ghotra MD Unavailable [phone] Chet Sorto MD Primary Care Provider Encounter Details Date Type Department Care Team (Late st Contact Info) Description 09/03/2017 Orders Only [facility] ProviderDakota MD [address] [place] [address] Social History Tobacco Use Types Packs/Day Years Used Date Smoking Tobacco: Never Smokeless Tobacco: Never Alcohol Use Standard Drinks/Week Comments No 0 (1 standard drink = 0.6 oz pur e alcohol) Sex and Gender Information Value Date Recorded Sex Assigned at Not on file Legal Sex Male 12:42 AM [employer] Gender Identity Not on file Sexual [...] on filedocumented in this encounter Care Teams Key Filer Relationship Specialty Start Date End Date Cecilio Almazan MD PCP - General 07/20/14 02/03/24 Chet Sorto MD PCP - General Family Medicine 02/04/24 10/11/24 Chet Sorto MD [address] [place], [place] [address] PCP - General Family Medicine 10/12/24 Glenn Ya MD [address] [place], [place] [id number] Consulting Physician Urology 02/04/24 Jose Ghotra MD [address] [place] [address] Referring Physician Critical Care Med 02/04/24 documented as of this encounter
--- OUTSIDE RECORDS SUMMARY | 2024-10-12 17:19 | XMS_ITS | Referral Summary ---
Author Organization [facility] Address [address] [place] [address] Care Team Providers Care Talent Solutions Manager Name Role Phone Glenn Ya MD Unavailable [phone] Jose Ghotra MD Unavailable [phone] Chet Sorto MD Primary Care Provider Encounters Date Type Department Care Team Description 08/11/2024 2:15 PM CDT Office Visit [facility] Primary Care at [address] [phone] Chet Sorto MD Dyslipidemia associated with type 2 diabetes mellitus (HCC) (Primary Dx); Benign prostatic hyperplasia without urinary obstruction; Type 2 diabetes mellitus with hyperlipidemia (HCC); ILD (interstitial lung disease) (HCC); Diarrhea, unspecified type; Vitamin D deficiency; Actinic keratosis 08/09/2024 Telephone [facility] Primary Care at [address] [address] Chet Sorto MD Appointment 07/28/2024 Results Follow-Up [facility] Primary Care at [address] [phone] Chet Sorto MD Hemoglobin A1c, Thyroid Function Johnson, Comprehensive metabolic panel, Additional followed-up results: 5 07/26/2024 9:50 AM CDT Lab [address] [address] Type 2 diabetes mellitus with hyperlipidemia (HCC); Dyslipidemia associated with type 2 diabetes mellitus (HCC); Vitamin D deficiency 07/25/2024 Telephone [facility] Primary Care at [address] [place] [address] Chet Sorto MD Additional Services [...] NIGHTLY 90 tablet 3 4 Active omega 4-gmu-cuk-fish oil 1,200 (144-216) mg capsule Take by [...] international units daily --> recommend increasing to 1231-3209 mg daily - he was started on Vitamin D for hair loss by prior PCP - most recent labs as shown below - recheck labs, order placed Lab Results Component Value Date 25HYDROVITD 30 04/14/2023 25HYDROVITD 33 10/07/2021 25HYDROVITD 21 (L) 04/01/2021 25HYDROVITD 25 (L) 09/26/2020 Assessment & Plan (06/27/2023 2:44 PM PAPER DELIVERER): Continue vitamin-D supplementation check levels yearly Assessment & Plan (10/30/2022 2:32 PM CDT): Continue supplementation check level before next visit. Assessment & Plan (05/01/2022 5:55 PM PAPER DELIVERER): Continue current supplementation and check level in 1 year. Assessment & Plan (10/22/2021 2:30 PM CDT): Continue current supplementation and check level in 1 year. Assessment & Plan (04/11/2021 2:06 PM PAPER DELIVERER): Increase vitamin-D to 2000 units daily and [...] 07/05/2019 Overview (09/23/2019): CT reveiwed by his museum archivist and radiologist at [facility] who felt PE's were lymph nodes next [...] and managed by Pulmonology - now at [facility] Dr. Ghotra - currently on Ofev [...] and managed by Pulmonology - now at [facility] Dr. Matt - currently on Ofev 100mg BID - started on supplemental oxygen around 11/2023 2% oxygen at night for nocturnal hypoxemia - gets PFTs twice a year and gets examined twice a year as well - continue management per Pulmonology Assessment & Plan (06/27/2023 2:44 PM PAPER DELIVERER): Continue ofev and follow up with his museum archivist as they direct Assessment & Plan (10/30/2022 2:32 PM CDT): Continue OFEV and follow-up with museum archivist as they direct. Assessment & Plan (10/22/2021 2:29 PM CDT): Continue OFEV follow-up with his museum archivist as they direct. Does not currently qualify for [facility] disability parking placard with FEV1 greater than 1. Assessment & Plan (04/11/2021 2:06 PM PAPER DELIVERER): Continue his ofev and follow-up with museum archivist as they direct. Assessment & Plan (10/09/2020 1:51 PM CDT): Currently on reduced dose Ofev due to side effects of diarrhea and weight loss Assessment & Plan (03/26/2020 10:52 AM PAPER DELIVERER): Continue ofev and follow-up with his museum archivist as they direct. Assessment & Plan (09/23/2019 6:16 PM CDT): Follow-up with his museum archivist as they direct. Assessment & Plan (09/12/2019 8:52 PM CDT): Follow-up with his museum archivist for further evaluation. Dry mouth 03/21/2019 Overview (03/21/2019): Patient reports negative rheumatology workup. Assessment & Plan (02/04/2024 11:54 AM CDT): - chronic condition - Patient reports negative rheumatology workup per former PCP in 2019 He had been using Nsbt-jhm-adamgat products as needed. - states it seemed [...] supplementation Assessment & Plan (03/21/2019 10:52 AM PAPER DELIVERER): Svzf-jdk-xzgbtus products as needed. EUN positive 03/23/2018 Overview (03/21/2019): Negative rheumatology workup per patient. Assessment & Plan (03/23/2018 9:14 AM PAPER DELIVERER): With symptoms of sicca syndrome and positive EUN panel, will have him see Dr. Lopez for further evaluation. Dry eye syndrome of bilateral lacrimal glands Type 2 diabetes mellitus with hyperlipidemia Assessment & Plan (08/11/2024 2:10 PM CDT): - chronic condition - initial diagnosis [id number] - most recent labs as shown below [...] CDT): - chronic condition - initial diagnosis [id number] - most recent labs as shown below [...] 01/20/2024 Assessment & Plan (06/27/2023 2:44 PM PAPER DELIVERER): A1c, LDL, and blood pressure currently well controlled on current regimen. Check a yearly diabetic eye exam and blood sugars daily. Monofilament testing is intact. Assessment & Plan (10/30/2022 2:32 PM CDT): A1c, LDL, and blood pressure currently well controlled on current regimen. Check a yearly diabetic eye exam and blood sugars daily. Monofilament testing is intact. Assessment & Plan (05/01/2022 5:55 PM PAPER DELIVERER): A1c, LDL, and blood pressure currently well controlled on current regimen. Check a yearly diabetic eye exam and blood sugars daily. Monofilament testing is intact. Assessment & Plan (10/22/2021 2:29 PM CDT): A1c, LDL, and blood pressure currently well controlled on current regimen. Check a yearly diabetic eye exam and blood sugars daily. Monofilament testing is intact. Assessment & Plan (04/11/2021 2:06 PM PAPER DELIVERER): A1c, LDL, and blood pressure currently well controlled on current regimen. Check a yearly diabetic eye exam and blood sugars daily. Monofilament testing is intact. Assessment & Plan (10/09/2020 1:50 PM CDT): A1c, LDL, and blood pressure currently well controlled on current regimen. Check a yearly diabetic eye exam and blood sugars daily. Monofilament testing is intact. Assessment & Plan (03/26/2020 10:51 AM PAPER DELIVERER): A1c, LDL, and blood pressure currently well controlled on current regimen. Check a yearly diabetic eye exam and blood sugars daily. Monofilament testing is intact. Assessment & Plan (09/23/2019 6:16 PM CDT): A1c, LDL, and blood pressure currently well controlled on current regimen. Check a yearly diabetic eye exam and blood sugars daily. Monofilament testing is intact. Assessment & Plan (03/21/2019 10:52 AM PAPER DELIVERER): A1c, LDL, and blood pressure currently well [...] intact. Assessment & Plan (03/23/2018 9:13 AM PAPER DELIVERER): A1c, LDL, and blood pressure currently well [...] intact. Assessment & Plan (03/19/2017 6:36 PM PAPER DELIVERER): A1c, LDL, and blood pressure currently well controlled on current regimen. Check a yearly diabetic eye exam and blood sugars daily. Take a daily aspirin. Monofilament testing is intact. Dyslipidemia associated with type 2 diabetes giancarlo markus 09/17/2013 Assessment & Plan (08/11/2024 2:14 PM CDT): - chronic condition - status: is adequately controlled. - current management/medications: Simvastatin 20 mg nightly and fish oil supplement John Day-3 takes 3600 mg daily - other comorbid [...] 20 mg nightly and fish oil supplement John Day-3 takes 3600 mg daily - other comorbid [...] 01/20/2024 Assessment & Plan (06/27/2023 2:44 PM PAPER DELIVERER): Well controlled on current therapy and will check a lipid panel and LFTs in 6 months. Assessment & Plan (10/30/2022 2:32 PM CDT): Well controlled on current therapy and will check a lipid panel and LFTs in 6 months. Assessment & Plan (05/01/2022 5:56 PM PAPER DELIVERER): Well controlled on current therapy and will check a lipid panel and LFTs in 6 months. Assessment & Plan (10/22/2021 2:29 PM CDT): Well controlled on current therapy and will check a lipid panel and LFTs in 6 months. Assessment & Plan (04/11/2021 2:06 PM PAPER DELIVERER): Well controlled on current therapy and will check a lipid panel and LFTs in 6 months. Assessment & Plan (10/09/2020 1:51 PM CDT): Well controlled on current therapy and will check a lipid panel and LFTs in 6 months. Assessment & Plan (03/26/2020 10:51 AM PAPER DELIVERER): Well controlled on current therapy and will check a lipid panel and LFTs in 6 months. Assessment & Plan (09/23/2019 6:16 PM CDT): Well controlled on current therapy and will check a lipid panel and LFTs in 6 months. Assessment & Plan (03/21/2019 10:52 AM PAPER DELIVERER): Well controlled on current therapy and will check a lipid panel and LFTs in 6 months. Assessment & Plan (09/20/2018 10:09 AM CDT): Well controlled on current therapy and will check a lipid panel and LFTs in 6 months. Assessment & Plan (03/23/2018 9:13 AM PAPER DELIVERER): Well controlled on current therapy and will check a lipid panel and LFTs in 6 months. Assessment & Plan (09/10/2017 10:29 AM CDT): Well controlled on current therapy and will check a lipid panel and LFTs in 6 months. Assessment & Plan (03/19/2017 6:36 PM PAPER DELIVERER): Well controlled on current therapy and will [...] now. Assessment & Plan (03/26/2020 10:52 AM PAPER DELIVERER): Well controlled on finasteride. Assessment & Plan (09/23/2019 6:17 PM CDT): Continue finasteride follow-up with his urologist as they direct. Assessment & Plan (03/21/2019 10:52 AM PAPER DELIVERER): Continue finasteride and follow up with his urologist as they direct. Assessment & Plan (09/20/2018 10:10 AM CDT): Stable on his finasteride and should follow up with his urologist for PSAs as they direct. Assessment & Plan (03/23/2018 9:13 AM PAPER DELIVERER): Well controlled on finasteride and should follow up with his urologist regarding PSAs. Assessment & Plan (09/10/2017 10:29 AM CDT): Continue finasteride and PSAs are followed by his urologist. Assessment & Plan (03/19/2017 6:36 PM PAPER DELIVERER): Stable on finasteride and should follow up with his urologist as they direct. Atopic rhinitis 09/17/2013 Assessment & Plan (02/04/2024 11:41 AM CDT): - chronic condition, improved - uses to take OTC medications but not anymore Assessment & Plan (05/02/2019 5:56 PM PAPER DELIVERER): Nasal mucosa is erythematous and edematous. Instructed [...] persist. Assessment & Plan (03/21/2019 10:53 AM PAPER DELIVERER): Well controlled without medication. Assessment & Plan (09/20/2018 10:10 AM CDT): Well controlled without medication. Assessment & Plan (03/23/2018 9:13 AM PAPER DELIVERER): Well controlled without medication currently Assessment & Plan (09/10/2017 10:29 AM CDT): Claritin p.r.n. Assessment & Plan (03/19/2017 6:37 PM PAPER DELIVERER): Claritin as needed. Resolved Problems Problem Noted Date Diagnosed Date Resolved Date Alopecia 10/09/2020 02/04/2024 Assessment & Plan (10/09/2020 1:51 PM CDT): Possibly from his vitamin-D deficiency. Start replacement and check level before next visit. Check iron levels before next visit. Interstitial lung disease 01/17/2020 Overview (01/17/2020): Added automatically from request for surgery [id number] Chronic cough 06/22/2019 02/04/2024 Overview (06/22/2019): Cough began in March 2019. Have tried albuterol, Flonase, and patient has been treated for pneumonia due to chest X-ray in March. Assessment & Plan (06/22/2019 3:18 PM PAPER DELIVERER): Discussed importance of chest CT due to [...] exercise. Assessment & Plan (06/22/2019 3:18 PM PAPER DELIVERER): Benefits of weight loss discussed. Reviewed recommendations [...] needed. Assessment & Plan (03/23/2018 9:14 AM PAPER DELIVERER): We discussed a comprehensive list of medical [...] needed. Assessment & Plan (03/19/2017 6:37 PM PAPER DELIVERER): We discussed a comprehensive list of medical [...] needed At low risk for fall 03/19/2017 06/2 022 Assessment & Plan (10/09/2020 1:52 PM CDT): Timed get up and go test normal. Assessment & Plan (09/23/2019 6:17 PM CDT): Timed get up and go test normal. Assessment & Plan (03/23/2018 9:14 AM PAPER DELIVERER): Timed get up and go test normal. Assessment & Plan (03/19/2017 6:37 PM PAPER DELIVERER): Timed get up and go test normal. Constipation 03/19/2017 02/04/2024 Assessment & Plan (03/19/2017 6:37 PM PAPER DELIVERER): Add Metamucil and MiraLax. If no improvement [...] on file Legal Sex Male 12:42 AM PAPER DELIVERER Gender Identity Not on file Sexual Orientation [...] 2:06 PM CDT Height 170.2 cm (5' 7) 08/11/2024 2:06 PM CDT Body Mass Index [...] AM CDT 07/26/2024 10:31 AM CDT us Chet Sorto MD LAB BLOOD ORDERABLES Fi nal Result [facility] ([place] 1 [facility] Department [place] [address] * Differential, auto (07/26/2024 10:00 AM CDT) [...] ORDERABLES Fi nal Result Performing Organization Address City/[facility]/ZIP Co de Phone Number [facility] PORTILLO ([place]) 1 [facility] [place] [address] * Thyroid Function Johnson (07/26/2024 10:00 AM CDT) TSH 1.82 0.30 - 4.20 mcIUnit/mL Blood 07/26/2024 10:0 0 AM CDT 07/26/2024 10:31 AM CDT Chet Sorto MD LAB BLOOD ORDERABLES Fi nal Result [facility] ([place]) 1 [facility] [employer] [place] [address] * (ABNORMAL) CBC with auto differential (07/26/2024 10:00 AM CDT) WBC 9.1 3.8 - 9.9 K/cumm Hgb 13.0 13.0 - 17.5 g/dL [facility] ([place]) Hct 40.7 38.9 - 50.3 % [facility] ([place]) Plt 301 150 - 400 K/cumm [facility] ([place]) MPV 9.9 9.1 - 12.3 fL [facility] ([place]) RBC 4.34 4.30 - 5.80 M/cumm [facility] ([place]) MCV 93.8 81.3 - 96.4 fL [facility] ([place]) MCH 30.0 27.1 - 33.3 pg [facility] ([place]) MCHC 31.9(L) 32.3 - 35.7 g/dL [facility] ([place]) RDW CV 14.2 11.1 - 14.9 % [facility] ([place]) RDW SD 49.1(H) 35.7 - 48.1 fL [facility] ([place]) NRBC abs 0.00 0.00 - 0.01 K/cumm [facility] ([place]) Blood 07/26/2024 10:0 0 AM CDT 07/26/2024 10:31 AM CDT us Chet Sorto MD LAB BLOOD ORDERABLES Fi nal Result [facility] ([place]) 1 [facility] Department [place] [address] * Vitamin D 25 hydroxy (07/26/2024 10:00 AM CDT) Vitamin D 25-OH 37 30 - 80 ng/mL Blood 07/26/2024 10:0 0 AM CDT 07/26/2024 10:31 AM CDT Chet Sorto MD LAB BLOOD ORDERABLES Fi nal Result Performing Organization Address City/[facility]/ZIP Co de Phone Number [facility] PORTILLO [place]) 1 [facility] Department [place] [address] * (ABNORMAL) Hemoglobin A1c (07/26/2024 10:00 AM CDT) Hgb A1C 6.3(H) 4.0 - 5.6 % Estimated Average Glucose 134 mg/dL [facility] ([place]) Comment: The ADA recommends reporting an estimated Average Glucose (eAG) with all Hemoglobin A1c results using the equation derived from a study of 507 normal and diabetic adults. Minority populations were underrepresented and children were not included. (Diabetes Care 31:0075-9105, 2008). The eAG is not equivalent to a fasting glucose. Blood 07/26/2024 10:0 0 AM CDT 07/26/2024 10:31 AM CDT Chet Sorto MD LAB BLOOD ORDERABLES Fi nal Result Performing Organization Address [facility] Co de Phone Number INDIA PORTILLO ([place]) 1 [facility] [employer] [place] [address] * (ABNORMAL) Lipid panel (07/26/2024 10:00 AM CDT) [facility] Cholesterol 145 30 - 199 mg/dL Comment: Interpretive Data Ages < or = 19 years Acceptable: <170 mg/dL Borderline high: 170-199 mg/dL High: >or= 200 mg/dL Ages > or = 20 years Desirable: <200 mg/dL Borderline high: 200-239 mg/dL High: >or= 240 mg/dL Literature References: 1. Expert Panel on Integrated Guidelines for Cardiovascular Health and Risk Reduction in Children and Adolescents. Pediatrics 2011;128:S213 2. NCEP Expert Panel. Circulation 2004;110:227 Current Interpretive Data was last revised on 2017. Triglycerides 107 <=149 mg/dL [facility] PORT[facility] ([place]) Comment: Interpretive Data Ages < or = 9 years Acceptable: <75 mg/dL Borderline high: 75-99 mg/dL High: >or= 100 mg/dL Ages 10 to 20 years Acceptable: <90 mg/dL Borderline high: 90-129 mg/dL High: >or= 130 mg/dL Ages > or = 20 years Desirable: <150 mg/dL Borderline high: 150-199 mg/dL High: 200-499 mg/dL Very high: >or= 499 mg/dL Literature References: 1. Expert Panel on Integrated Guidelines for Cardiovascular Health and Risk Reduction in Children and Adolescents. Pediatrics 2011;128:S213 2. NCEP Expert Panel. Circulation 2004;110:227 Current Interpretive Data was last revised on 2017. HDL 39(L) >=40 mg/dL INDIA Massey ([place]) Comment: Interpretive Data Ages < or = 19 years Acceptable: >45 mg/dL Borderline low: 40-45 mg/dL Low: <40 mg/dL Ages > or = 20 years Desirable: >or= 60 mg/dL Low: <40 mg/dL Literature References: 1. Expert Panel on Integrated Guidelines for Cardiovascular Health and Risk Reduction in Children and Adolescents. Pediatrics 2011;128:S213 2. NCEP Expert Panel. Circulation 2004;110:227 Current Interpretive Data was last revised on 2017. LDL, calculated 86 <=129 mg/dL [facility] PORTILLO ([place]) Comment: Interpretive Data Ages < or = 19 years Acceptable: <110 mg/dL Borderline high: 110-129 mg/dL High: >or= 130 mg/dL Ages > or = 20 years Optimal: <100 mg/dL Near optimal: 100-129 mg/dL Borderline high: 130-159 mg/dL High: >160 mg/dL Calculated using the Jc LDL-C estimating equation. This equation was implemented on 2023. Prior to this date LDL-C was estimated using the Friedewald equation. Literature References: 1. Expert Panel on Integrated Guidelines for Cardiovascular Health and Risk Reduction in Children and Adolescents. Pediatrics 2011;128:S213 2. NCEP Expert Panel. Circulation 2004;110:227 3. Jc Quintanilla al. SCOTTY Cardiol. 2020 September 01;5(5):540-548. doi: 10.1001/jamacardio.2020.0013 Current Interpretive Data was last revised on 2023. Non-HDL Cholesterol 106 mg/dL [facility] PORTILLO ([place]) Comment: Interpretive Data Ages < or = 19 years Acceptable: <120 mg/dL Borderline high: 120-144 mg/dL High: >145 mg/dL Ages > or = 20 years When triglycerides are >200 mg/dL, Non-HDL cholesterol is a secondary target of therapy with treatment goals that are 30 mg/dL greater than the LDL cholesterol target. Literature References: 1. Expert Panel on Integrated Guidelines for Cardiovascular Health and Risk Reduction in Children and Adolescents. Pediatrics 2011;128:S213 2. NCEP Expert Panel. Circulation 2004;110:227 Current Interpretive Data was last revised on 2017. Chol/HDL ratio 4 [facility] ([place]) Blood 07/26/2024 10:0 0 AM CDT 07/26/2024 10:31 AM CDT Narrative [facility] ([place]) - 07/26/2024 11:14 AM CDT Has the patient been fasting for 8 hours or more?->No Chet Sorto MD LAB BLOOD ORDERABLES Fi nal Result [facility] ([place]) 1 [facility] Department [place] [address] * Comprehensive metabolic panel (07/26/2024 10:00 AM CDT) Sodium 139 135 - 145 mmol/L Potassium, pl 4.5 3.3 - 4.9 mmol/L [facility] ([place]) Chloride 102 97 - 110 mmol/L [facility] ([place]) CO2 26 22 - 32 mmol/L [facility] ([place]) Anion gap 11 2 - 15 mmol/L [facility] ([place]) BUN 14 6 - 25 mg/dL [facility] ([place]) Creatinine 0.88 0.80 - 1.30 mg/dL [facility] ([place]) Glucose 116 70 - 199 mg/dL [facility] ([place]) Comment: Interpretive Data Fasting glucose >/= 126 mg/dl is diagnostic for diabetes. Fasting is defined as no caloric intake for at least 8 hours. Fasting glucose between 100 mg/dl to 125 mg/dl is diagnostic of prediabetes. In a patient with classic symptoms of hyperglycemia or hyperglycemic crisis, a random glucose >/= 200 mg/dl is diagnostic for diabetes. In the absence of unequivocal hyperglycemia, results should be confirmed by repeat testing. The classification and Diagnosis of Diabetes Diabetes Care 2021; 46: S19-S40. Current interpretive data was last revised 2022. Calcium 9.3 8.5 - 10.3 mg/dL [facility] ([place]) Bilirubin, total 0.4 0.1 - 1.2 mg/dL [facility] ([place]) Protein, pl 6.9 6.5 - 8.5 g/dL [facility] ([place]) Albumin 3.9 3.5 - 5.0 g/dL [facility] ([place]) Alk phos 89 40 - 130 Units/L [facility] ([place]) ALT 13 7 - 55 Units/L [facility] ([place]) AST 19 10 - 50 Units/L [facility] ([place]) Blood 07/26/2024 10:0 0 AM CDT 07/26/2024 10:31 AM CDT Chet Sorto MD LAB BLOOD ORDERABLES nal Result [facility] ([place] 1 [facility] Department [place] [address] * Albumin Creatinine Ratio, Urine (01/20/2024 10:00 AM CDT) Albumin Ur <12.0 mg/L Comment: Interpretive Data No reference range established. Current interpretive data was last revised 2018. Testing performed by: [facility], [address] [place] [address]., [id number] Creatinine Ur 59.7 mg/dL [facility] ([place]) Comment: Interpretive Data No reference range established. Current interpretive data was last revised 2018. Testing performed by: [facility], [address] [place] [address]., [id number] Albumin Creatinine Ratio, Ur <20 1 - 29 mg/g [facility] ([place]) Comment:Testing performed by : [facility], [address] [place] [address]., [id number] Urine 01/20/2024 10:0 0 AM CDT 01/20/2024 1:54 PM CDT Narrative [facility] ([place]) - 01/20/2024 2:49 PM CDT fasting Cecilio Almazan MD LAB URINE ORDERABLES Final R esult [facility] ([place]) 1 [facility] Department [place] [address] * Diabetic Eye Exam (07/13/2023) Generic External Data Provider HEALTH MAINTENANC E Final Result * DIABETES FOOT EXAM (08/28/2016) Diabetic Foot Exam Unknown Historical Provider HEALTH MAINTENANCE Final Result * COLONOSCOPY IMAGES (08/16/2014) Anatomical Region Laterality Modality Other Narrative 08/16/2014 Ordered by an unspecified provider. Result [facility] Historical Provider GI PROCEDURE ORDERABLES F inal Result * PSA, total Blood (08/18/2011) SCRIBED PSA, Total 1.00 0 - 4.0 Blood specimen (specimen) 08/18/2011 Result [facility] Historical Provider LAB BLOOD ORDERABLES Shania l Result from Last 3 Months or Most Recently Relevant to Health Maintenance Insurance T MEDICARE UHC MEDICARE [facility] MED[facility] Address: [address] [address] [place] [address] [facility] MED[facility] Advance Directives For more information, please contact: [phone] * Full Code (Latest Code Status on File) Date Activated Date Inactivated Comments 02/02/2020 1:12 PM 02/05/2020 5:14 PM Care Teams Talent Solutions Manager Relationship Specialty Start Date End Date Chet Sorto MD [id number] [address] PCP - General Family Medicine 10/12/24 Glenn Ya MD [address] [place] [address] Consulting Physician Urology 02/04/24 Jose Ghotra MD [address] [place] [address] Referring Physician Critical Care Med 02/04/24
--- OUTSIDE RECORDS SUMMARY | 2024-10-12 17:19 | XMS_ITS | Clinical Summary ---
Author Organization [facility] Address [address] [place] [address] Care Team Providers Care Spiral Winder Name Role Phone Glenn Ya MD Unavailable [phone] Jose Ghotra MD Unavailable [phone] Chet Sorto MD Primary Care Provider Allergies Active Allergy Reactions Criticality Noted Date [...] NIGHTLY 90 tablet 3 4 Active omega 5-fxf-yrq-fish oil 1,200 (144-216) mg capsule Take by [...] international units daily --> recommend increasing to 6094-6123 mg daily - he was started on Vitamin D for hair loss by prior PCP - most recent labs as shown below - recheck labs, order placed Lab Results Component Value Date 25HYDROVITD 30 04/14/2023 25HYDROVITD 33 10/07/2021 25HYDROVITD 21 (L) 04/01/2021 25HYDROVITD 25 (L) 09/26/2020 Assessment & Plan (06/27/2023 2:44 PM BRICKMASON APPRENTICE): Continue vitamin-D supplementation check levels yearly Assessment & Plan (10/30/2022 2:32 PM CDT): Continue supplementation check level before next visit. Assessment & Plan (05/01/2022 5:55 PM BRICKMASON APPRENTICE): Continue current supplementation and check level in 1 year. Assessment & Plan (10/22/2021 2:30 PM CDT): Continue current supplementation and check level in 1 year. Assessment & Plan (04/11/2021 2:06 PM BRICKMASON APPRENTICE): Increase vitamin-D to 2000 units daily and [...] 07/05/2019 Overview (09/23/2019): CT reveiwed by his layboy operator and radiologist at [facility] who felt PE's were lymph nodes next [...] Pulmonology Assessment & Plan (06/27/2023 2:44 PM BRICKMASON APPRENTICE): Continue ofev and follow up with his layboy operator as they direct Assessment & Plan (10/30/2022 2:32 PM CDT): Continue OFEV and follow-up with layboy operator as they direct. Assessment & Plan (10/22/2021 2:29 PM CDT): Continue OFEV follow-up with his layboy operator as they direct. Does not currently qualify for [facility] disability parking placard with FEV1 greater than 1. Assessment & Plan (04/11/2021 2:06 PM BRICKMASON APPRENTICE): Continue his ofev and follow-up with layboy operator as they direct. Assessment & Plan (10/09/2020 1:51 PM CDT): Currently on reduced dose Ofev due to side effects of diarrhea and weight loss Assessment & Plan (03/26/2020 10:52 AM BRICKMASON APPRENTICE): Continue ofev and follow-up with his layboy operator as they direct. Assessment & Plan (09/23/2019 6:16 PM CDT): Follow-up with his layboy operator as they direct. Assessment & Plan (09/12/2019 8:52 PM CDT): Follow-up with his layboy operator for further evaluation. Dry mouth 03/21/2019 Overview (03/21/2019): Patient reports negative rheumatology workup. Assessment & Plan (02/04/2024 11:54 AM CDT): - chronic condition - Patient reports negative rheumatology workup per former PCP in 2019 He had been using Tnog-wlb-fpjrwnp products as needed. - states it seemed [...] supplementation Assessment & Plan (03/21/2019 10:52 AM BRICKMASON APPRENTICE): Tlto-peu-wwqjqhg products as needed. EUN positive 03/23/2018 Overview (03/21/2019): Negative rheumatology workup per patient. Assessment & Plan (03/23/2018 9:14 AM BRICKMASON APPRENTICE): With symptoms of sicca syndrome and positive EUN panel, will have him see Dr. Lopez for further evaluation. 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 Check a yearly diabetic eye exam and blood sugars daily. Monofilament testing is intact. Assessment & Plan (10/30/2022 2:32 PM CDT): A1c, LDL, and blood pressure currently well controlled on current regimen. Check a yearly diabetic eye exam and blood sugars daily. Monofilament testing is intact. Assessment & Plan (05/01/2022 5:55 PM BRICKMASON APPRENTICE): A1c, LDL, and blood pressure currently well controlled on current regimen. Check a yearly diabetic eye exam and blood sugars daily. Monofilament testing is intact. Assessment & Plan (10/22/2021 2:29 PM CDT): A1c, LDL, and blood pressure currently well controlled on current regimen. Check a yearly diabetic eye exam and blood sugars daily. Monofilament testing is intact. Assessment & Plan (04/11/2021 2:06 PM BRICKMASON APPRENTICE): A1c, LDL, and blood pressure currently well controlled on current regimen. Check a yearly diabetic eye exam and blood sugars daily. Monofilament testing is intact. Assessment & Plan (10/09/2020 1:50 PM CDT): A1c, LDL, and blood pressure currently well controlled on current regimen. Check a yearly diabetic eye exam and blood sugars daily. Monofilament testing is intact. Assessment & Plan (03/26/2020 10:51 AM BRICKMASON APPRENTICE): A1c, LDL, and blood pressure currently well controlled on current regimen. Check a yearly diabetic eye exam and blood sugars daily. Monofilament testing is intact. Assessment & Plan (09/23/2019 6:16 PM CDT): A1c, LDL, and blood pressure currently well controlled on current regimen. Check a yearly diabetic eye exam and blood sugars daily. Monofilament testing is intact. Assessment & Plan (03/21/2019 10:52 AM BRICKMASON APPRENTICE): A1c, LDL, and blood pressure currently well [...] intact. Assessment & Plan (03/23/2018 9:13 AM BRICKMASON APPRENTICE): A1c, LDL, and blood pressure currently well [...] intact. Assessment & Plan (03/19/2017 6:36 PM BRICKMASON APPRENTICE): A1c, LDL, and blood pressure currently well [...] 20 mg nightly and fish oil supplement Afton-3 takes 3600 mg daily - other comorbid [...] 20 mg nightly and fish oil supplement Afton-3 takes 3600 mg daily - other comorbid [...] 01/20/2024 Assessment & Plan (06/27/2023 2:44 PM BRICKMASON APPRENTICE): Well controlled on current therapy and will check a lipid panel and LFTs in 6 months. Assessment & Plan (10/30/2022 2:32 PM CDT): Well controlled on current therapy and will check a lipid panel and LFTs in 6 months. Assessment & Plan (05/01/2022 5:56 PM BRICKMASON APPRENTICE): Well controlled on current therapy and will check a lipid panel and LFTs in 6 months. Assessment & Plan (10/22/2021 2:29 PM CDT): Well controlled on current therapy and will check a lipid panel and LFTs in 6 months. Assessment & Plan (04/11/2021 2:06 PM BRICKMASON APPRENTICE): Well controlled on current therapy and will check a lipid panel and LFTs in 6 months. Assessment & Plan (10/09/2020 1:51 PM CDT): Well controlled on current therapy and will check a lipid panel and LFTs in 6 months. Assessment & Plan (03/26/2020 10:51 AM BRICKMASON APPRENTICE): Well controlled on current therapy and will check a lipid panel and LFTs in 6 months. Assessment & Plan (09/23/2019 6:16 PM CDT): Well controlled on current therapy and will check a lipid panel and LFTs in 6 months. Assessment & Plan (03/21/2019 10:52 AM BRICKMASON APPRENTICE): Well controlled on current therapy and will check a lipid panel and LFTs in 6 months. Assessment & Plan (09/20/2018 10:09 AM CDT): Well controlled on current therapy and will check a lipid panel and LFTs in 6 months. Assessment & Plan (03/23/2018 9:13 AM BRICKMASON APPRENTICE): Well controlled on current therapy and will check a lipid panel and LFTs in 6 months. Assessment & Plan (09/10/2017 10:29 AM CDT): Well controlled on current therapy and will check a lipid panel and LFTs in 6 months. Assessment & Plan (03/19/2017 6:36 PM BRICKMASON APPRENTICE): Well controlled on current therapy and will [...] now. Assessment & Plan (03/26/2020 10:52 AM BRICKMASON APPRENTICE): Well controlled on finasteride. Assessment & Plan (09/23/2019 6:17 PM CDT): Continue finasteride follow-up with his urologist as they direct. Assessment & Plan (03/21/2019 10:52 AM BRICKMASON APPRENTICE): Continue finasteride and follow up with his urologist as they direct. Assessment & Plan (09/20/2018 10:10 AM CDT): Stable on his finasteride and should follow up with his urologist for PSAs as they direct. Assessment & Plan (03/23/2018 9:13 AM BRICKMASON APPRENTICE): Well controlled on finasteride and should follow up with his urologist regarding PSAs. Assessment & Plan (09/10/2017 10:29 AM CDT): Continue finasteride and PSAs are followed by his urologist. Assessment & Plan (03/19/2017 6:36 PM BRICKMASON APPRENTICE): Stable on finasteride and should follow up with his urologist as they direct. Atopic rhinitis 09/17/2013 Assessment & Plan (02/04/2024 11:41 AM CDT): - chronic condition, improved - uses to take OTC medications but not anymore Assessment & Plan (05/02/2019 5:56 PM BRICKMASON APPRENTICE): Nasal mucosa is erythematous and edematous. Instructed [...] persist. Assessment & Plan (03/21/2019 10:53 AM BRICKMASON APPRENTICE): Well controlled without medication. Assessment & Plan (09/20/2018 10:10 AM CDT): Well controlled without medication. Assessment & Plan (03/23/2018 9:13 AM BRICKMASON APPRENTICE): Well controlled without medication currently Assessment & Plan (09/10/2017 10:29 AM CDT): Marie sheffield Assessment & Plan (03/19/2017 6:37 PM BRICKMASON APPRENTICE): Claritin as needed. Resolved Problems Problem Noted Date Diagnosed Date Resolved Date Alopecia 10/09/2020 02/04/2024 Assessment & Plan (10/09/2020 1:51 PM CDT): Possibly from his vitamin-D deficiency. Start replacement and check level before next visit. Check iron levels before next visit. Interstitial lung disease 01/17/2020 Overview (01/17/2020): Added automatically from request for surgery [id number] Chronic cough 06/22/2019 02/04/2024 Overview (06/22/2019): Cough began in March 2019. Have tried albuterol, Flonase, and patient has been treated for pneumonia due to chest X-ray in March. Assessment & Plan (06/22/2019 3:18 PM BRICKMASON APPRENTICE): Discussed importance of chest CT due to [...] exercise. Assessment & Plan (06/22/2019 3:18 PM BRICKMASON APPRENTICE): Benefits of weight loss discussed. Reviewed recommendations [...] needed. Assessment & Plan (03/23/2018 9:14 AM BRICKMASON APPRENTICE): We discussed a comprehensive list of medical [...] needed. Assessment & Plan (03/19/2017 6:37 PM BRICKMASON APPRENTICE): We discussed a comprehensive list of medical [...] normal. Assessment & Plan (03/23/2018 9:14 AM BRICKMASON APPRENTICE): Timed get up and go test normal. Assessment & Plan (03/19/2017 6:37 PM BRICKMASON APPRENTICE): Timed get up and go test normal. Constipation 03/19/2017 02/04/2024 Assessment & Plan (03/19/2017 6:37 PM BRICKMASON APPRENTICE): Add Metamucil and MiraLax. If no improvement would recommend moving up his colonoscopy given his family history of colon cancer. Encounters Date Type Department Care Team Description 08/11/2024 2:15 PM CDT Office Visit [facility] Primary Care at [address] [address] Chet Sorto MD Dyslipidemia associated with type 2 diabetes mellitus (HCC) (Primary Dx); Benign prostatic hyperplasia without urinary obstruction; Type 2 diabetes mellitus with hyperlipidemia (HCC); ILD (interstitial lung disease) (HCC); Diarrhea, unspecified type; Vitamin D deficiency; Actinic keratosis 08/09/2024 Telephone [facility] Primary Care at [address] [address] Chet Sorto MD Appointment 07/28/2024 Results Follow-Up [facility] Primary Care at [address] [address] Chet Sorto MD Hemoglobin A1c, Thyroid Function [place], Comprehensive metabolic panel, Additional followed-up results: 5 07/26/2024 9:50 AM CDT Lab [address] [address] Type 2 diabetes mellitus with hyperlipidemia (HCC); Dyslipidemia associated with type 2 diabetes mellitus (HCC); Vitamin D deficiency 07/25/2024 Telephone [facility] Primary Care at [address] [address] Chet Sorto MD Additional Services Or [...] on file Legal Sex Male 12:42 AM BRICKMASON APPRENTICE Gender Identity Not on file Sexual Orientation [...] LAB BLOOD ORDERABLES Fi nal Result [facility] ([place]) 1 [facility] [place] [address] * Differential, auto (07/26/2024 10:00 AM CDT) Neutrophil abs 5.6 1.5 - 6.5 K/cumm Imm gran abs 0.0 0.0 - 0.1 K/cumm [facility] ([place]) Lymphocyte abs 2.5 0.8 - 3.3 K/cumm [facility] ([place]) Monocyte abs 0.7 0.2 - 0.8 K/cumm [facility] ([place]) Eosinophil abs 0.3 0.0 - 0.5 K/cumm [facility] ([place]) Basophil abs 0.0 0.0 - 0.1 K/cumm [...] revised on 2017. Basophil pct 0.4 % [facility] ([place] Comment: Interpretive Data Percent cell count reference ranges are not reported, since discordance with absolute values may lead to misinterpretation of CBC data. Current Interpretive Data was last revised on 2017. Blood 07/26/2024 10:0 0 AM CDT 07/26/2024 10:31 AM CDT Chet Sorto MD LAB BLOOD ORDERABLES Fi nal Result Performing Organization Address City/[facility]/ZIP Co de Phone Number [place] [facility] ([place]) 1 [facility] [place] [employer] [place] [address] * Thyroid Function [place] (07/26/2024 10:00 AM CDT) TSH 1.82 0.30 - 4.20 mcIUnit/mL Blood 07/26/2024 10:0 0 AM CDT 07/26/2024 10:31 AM CDT Chet Sorto MD LAB BLOOD ORDERABLES Fi nal Result Performing Organization Address City/[facility]/ZIP Co de Phone Number [place] [facility] ([place]) 1 [facility] [employer] [place] [employer] [place] [address] * (ABNORMAL) CBC with auto differential (07/26/2024 10:00 AM CDT) WBC 9.1 3.8 - 9.9 K/cumm Hgb 13.0 13.0 - 17.5 g/dL [facility] ([place]) Hct 40.7 38.9 - 50.3 % [facility] Plt 301 150 - 400 K/cumm [facility]) MPV 9.9 9.1 - 12.[address] [facility] ([place]) RBC 4.34 4.30 - 5.80 M/cumm [facility] ([place]) MCV 93.8 81.3 - 96.[address] [facility] ([place]) MCH 30.0 27.1 - 33.3 pg [facility] ([place]) MCHC 31.9(L) 32.3 - 35.7 g/dL [facility] ([place]) RDW CV 14.2 11.1 - 14.9 % [facility] ([place]) RDW SD 49.1(H) 35.7 - 48.1 fL [facility] ([place]) NRBC abs 0.00 0.00 - 0.01 K/cumm [facility] ([place]) Blood 07/26/2024 10:0 0 AM CDT 07/26/2024 10:31 AM CDT Chet Sorto MD LAB BLOOD ORDERABLES Fi nal Result Performing Organization Address City/[facility]/ZIP Co de Phone Number [facility] ([place]) 1 [facility] [place] [employer] [place] [address] * Vitamin D 25 hydroxy (07/26/2024 10:00 AM CDT) [facility] Vitamin D 25-OH 37 30 - 80 ng/mL Blood 07/26/2024 10:0 0 AM CDT 07/26/2024 10:31 AM CDT Chet Sorto MD LAB BLOOD ORDERABLES Fi nal Result Performing Organization Address City/[facility]/ZIP Co de Phone Number [facility] ([place]) 1 [facility] [place] [address] * (ABNORMAL) Hemoglobin A1c (07/26/2024 10:00 AM CDT) Pathologist [facility] Hgb A1C 6.3(H) 4.0 - 5.6 % Estimated Average Glucose 134 mg/dL [facility] ([place]) Comment: The ADA recommends reporting an estimated Average Glucose (eAG) with all Hemoglobin A1c results using the equation derived from a study of 507 normal and diabetic adults. Minority populations were underrepresented and children were not included. (Diabetes Care 31:8959-6635, 2008). The eAG is not equivalent to a fasting glucose. Blood 07/26/2024 10:0 0 AM CDT 07/26/2024 10:31 AM CDT Chet Sorto MD LAB BLOOD ORDERABLES nal Result [facility] ([place] 1 [facility] [place] [address] * (ABNORMAL) Lipid panel (07/26/2024 10:00 AM CDT) Cholesterol 145 30 - 199 mg/dL Comment: [...] on 2017. HDL 39(L) >=40 mg/dL [facility] ([place]) Comment: Interpretive Data Ages < or [...] 2004;110:227 3. Jc Quintanilla al. SCOTTY Cardiol. 2019September 01;5(5):540-548. doi: 10.1001/jamacardio.2020.0013 Current Interpretive Data was [...] been fasting for 8 hours or more?->No us Chet Sorto MD LAB BLOOD ORDERABLES Fi nal Result [facility] ([place]) 1 [facility] [place] [address] * Comprehensive metabolic panel (07/26/2024 10:00 AM CDT) Sodium 139 135 - 145 mmol/L Potassium, pl 4.5 3.3 - 4.9 mmol/L [facility]) Chloride 102 97 - 110 mmol/L [facility]) CO2 26 22 - 32 mmol/L [facility]) Anion gap 11 2 - 15 mmol/L [facility]) BUN 14 6 - 25 mg/dL [facility] Creatinine 0.88 0.80 - 1.30 [...] classification and Diagnosis of Diabetes Diabetes Care 202; 46: S19-S40. Current interpretive data was last [...] ORDERABLES Fi nal Result Performing Organization Address [facility]/ZIP Co de Phone Number [facility] ([place]) 1 [facility] [place] [address] * Albumin Creatinine Ratio, Urine (01/20/2024 10:00 AM CDT) Albumin Ur <12.0 mg/L Comment: Interpretive Data No reference range established. Current interpretive data was last revised 2018. Testing performed by: [address] [address] Creatinine Ur 59.7 mg/dL [facility] Comment: Interpretive Data No reference range established. Current interpretive data was last revised 2018. Testing performed by: [address] [address] Albumin Creatinine Ratio, Ur <20 1 - 29 mg/g [facility] ([place]) Comment:Testing performed by : [facility], [address] [place] [address]., [address] Urine 01/20/2024 10:0 0 AM CDT 01/20/2024 1:54 PM CDT Narrative [facility] ([place]) - 01/20/2024 2:49 PM CDT fasting us Cecilio Almazan MD LAB URINE ORDERABLES Final R esult Performing Organization Address City/[facility]/ZIP Co de Phone Number [place] ([place]) 1 [facility] [place] [address] * Diabetic Eye Exam (07/13/2023) Generic External Data Provider HEALTH MAINTENANC E Final Result * DIABETES FOOT EXAM (08/28/2016) Diabetic Foot Exam Unknown Historical Provider HEALTH MAINTENANCE Final Result * COLONOSCOPY IMAGES (08/16/2014) Anatomical Region Laterality Modality Other Narrative 08/16/2014 Ordered by an unspecified provider. Historical Provider GI PROCEDURE ORDERABLES F inal Result * PSA, total Blood (08/18/2011) SCRIBED PSA, Total 1.00 0 - 4.0 Blood specimen (specimen) 08/18/2011 Historical Provider LAB BLOOD ORDERABLES Shania l Result from Last 3 Months or Most Recently Relevant to Health Maintenance Insurance [facility] MEDICARE UHC MEDICARE ADVANTAGE [employer] MEDICARE [facility] MEDICARE Address: [address] [place] [address] Advance Directives For more information, please contact: [phone] * Full Code (Latest Code Status on File) Date Activated Date Inactivated Comments 02/02/2020 1:12 PM 02/05/2020 5:14 PM Care Teams Spiral Winder Relationship Specialty Start Date End Date Chet Sorto MD [address] [place] [address] PCP - General Family Medicine 10/12/24 Glenn Ya MD [address] [place] [address] Consulting Physician Urology 02/04/24 Jose Ghotra MD [address] [place] [address] Referring Physician Critical Care Med 02/04/24
--- NOTE | 2024-10-13 12:14 | WPDSIXMINUTE ---
Six Minute Walk Procedure Procedure Performed Pulmonary Stress Test (6 min walk) Six Minute Walk Six Minute Walk: This is a 6 minute walk test. The test was performed and interpreted in accordance with the 2014 ERS/ATS task force guidelines. Findings: The patient's resting room air oxygen saturation measured by pulse oximetry was 96%, the heart rate was 66 bpm, and the modified Marko dyspnea score was 2. Patient ambulated for 305 meters and oxygen saturation remained 90 to 96%. At the end of the study the heart rate was 89 bpm and the modified Marko dyspnea score was 4. The patient did not qualify for supplemental oxygen at rest or with ambulation. In comparison to previous 6 minute walk on 09/24/2023 the patient is ambulatory distance decreased from 488 m to 305 m and the mirela saturation decreased from 93% to 90%.
--- NOTE | 2024-10-13 12:20 | WPDPFTINT ---
PFT Procedure Performed PFT Procedure Performed Spirometry with Pre/Post Bronchodilator Plethysmography (Lung Vol) Diffusing Cap (DLCO) Flow Vol Loop PFT Interpretation This is a pulmonary function test with pre and post-bronchodilator spirometry, plethysmography and diffusing capacity. The test was performed and results interpreted in accordance with the 2019 and 2005 ATS/ERS Task Force guidelines respectively using the Global Lung Function Initiative-2012 reference equations. Patient demonstrated good effort and cooperation. Reproducibility criteria were met. The quality of the pre bronchodilator spirometry maneuver was Grade A and post bronchodilator spirometry maneuver was Grade A. Findings: Spirometry: The contour the expiratory flow tracing resembles a witch's hat. The the contour of the inspiratory flow tracing is normal. The pre bronchodilator FVC is 1.80 L, 55% predicted. The pre bronchodilator FEV1 is 1.47 L, 61% predicted. The pre bronchodilator FEV1: FVC ratio is 82%. The post bronchodilator FVC is 1.64 L, representing a 9% decrease. The post bronchodilator FEV1 is 1.35 L, representing an 8% decrease. The post bronchodilator FEV1: FVC ratio is 82%. Plethysmography: The total lung capacity is 3.48 L, 55% predicted. The functional residual capacity is 2.15 L, 63% predicted. The residual volume is 1.68 L, 66% predicted. Diffusing capacity: The diffusing capacity unadjusted for hemoglobin and carboxyhemoglobin is 8.9, 43% predicted. The diffusing capacity adjusted for alveolar volume is 3.70, 100% predicted. In comparison to previous pulmonary function testing on 09/23/2023 the Pre bronchodilator FVC is unchanged from 1.92 L to 1.80 L. The pre bronchodilator FEV1 is unchanged from 1.61 L to 1.47 L. The post bronchodilator FVC is decreased from 2.09 L to 1.64 L. The post bronchodilator FEV1 is decreased from 1.74 L to 1.35 L. The total lung capacity has increased from 3.03 L to 3.48 L. The functional residual capacity has increased from 1.43 L to 2.15 L. The residual volume has increased from 1.10 L to 1.68 L. The diffusing capacity unadjusted for hemoglobin and carboxyhemoglobin is decreased from 11.3 to 8.9. The diffusing capacity adjusted for alveolar volume is unchanged from 4.25 to 3.70. 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 The spirometry is normal without evidence of an obstructive abnormality. There is no significant improvement after inhaling a single dose of albuterol. The diffusing capacity unadjusted for hemoglobin and carboxyhemoglobin is moderately decreased and normalizes when adjusted for alveolar volume. In comparison to previous pulmonary function testing on 09/23/2023 there has been a greater than anticipated time dependent decrease in the post bronchodilator FVC, post bronchodilator FEV1, and diffusing capacity unadjusted for hemoglobin and carboxyhemoglobin. There has been a greater than anticipated time dependent increase in the total lung capacity, functional residual capacity and residual volume with no significant change in the pre bronchodilator FVC, pre bronchodilator FEV1 and diffusing capacity adjusted for alveolar volume. Clinical correlation is recommended.
== END 2024-10-12 14:31 | disposition home or self-care (01) ==
PROVIDERS: PCP Family Medicine; Visit Provider Internal Medicine Pulmonary Disease
DX: R94.2 Abnormal results of pulmonary function studies (principal); J84.9 Interstitial pulmonary disease, unspecified
CPT/HCPCS: 36600; 82375; 82805; 83050; 85018; 94060; 94618; 94726; 94729